=== PATIENT | female | born 2000 | race Caucasian/White ===

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

== ENCOUNTER 2020-02-27 08:00 | Outpatient (CLI) | payer MEDICAID ==
[2020-02-28 20:44] LABS: TRICHOMONAS VAGINALIS DNA NEGATIVE (NEGATIVE)
== END 2020-02-27 23:59 ==
LOC: LAB.R 08:00
PROVIDERS: ATTEND Advanced Practice Midwife
DX: Z30.49 Encounter for surveillance of other contraceptives (principal)
CPT/HCPCS: 87491; 87591; 87661

== ENCOUNTER 2020-03-26 08:00 | Outpatient (CLI) | payer MEDICAID ==
[2020-03-26 23:38] LABS: TRICHOMONAS VAGINALIS DNA NEGATIVE (NEGATIVE)
== END 2020-03-26 23:59 | disposition home or self-care (01) ==
LOC: LAB.R 08:00
PROVIDERS: ATTEND Advanced Practice Midwife
DX: A56.09 Other chlamydial infection of lower genitourinary tract (principal)
CPT/HCPCS: 87491; 87591; 87661

== ENCOUNTER 2020-05-14 13:15 | Outpatient (CLI) | payer MEDICAID ==
[2020-05-14 23:13] LABS: TRICHOMONAS VAGINALIS DNA NEGATIVE (NEGATIVE)
== END 2020-05-14 23:59 | disposition home or self-care (01) ==
LOC: LAB.R 13:15
PROVIDERS: ATTEND Obstetrics & Gynecology
DX: Z86.19 Personal history of other infectious and parasitic diseases (principal)
CPT/HCPCS: 87491; 87591; 87661

== ENCOUNTER 2020-07-02 08:00 | Outpatient (CLI) | payer MEDICAID ==
[2020-07-02 16:49] LABS: BILIRUBIN,URINE NEGATIVE (NEGATIVE); CLARITY,URINE CLOUDY (CLEAR); GLUCOSE, URINE (UA) NEGATIVE (NEGATIVE); KETONES,URINE (UA) TRACE mg/dL (NEGATIVE); LEUKOCYTE ESTERASE, URINE SMALL (NEGATIVE); NITRITE,URINE NEGATIVE (NEGATIVE); OCCULT BLOOD,URINE NEGATIVE (NEGATIVE); PROTEIN,URINE NEGATIVE (NEGATIVE); UROBILINOGEN,URINE 0.2 (NORMAL) E.U./dL (NORMAL)
[2020-07-02 17:01] LABS: AMORPHOUS SEDIMENT,UR Marked /LPF; BACTERIA,URINE Rare /HPF (None Seen); RBC,URINE 0-5 /HPF (0-5); SQUAMOUS EPITHELIAL CELL,UR MOD Squamous (<= Few)
== END 2020-07-02 23:59 | disposition home or self-care (01) ==
LOC: LAB.R 08:00
PROVIDERS: ATTEND Nurse Practitioner Obstetrics & Gynecology
DX: Z32.01 Encounter for pregnancy test, result positive (principal)
CPT/HCPCS: 81001; 87086

== ENCOUNTER 2020-07-16 06:42 | Outpatient (CLI) | payer MEDICAID ==
--- NOTE | 2020-07-16 09:57 | Ultrasound Report ---
PROCEDURE: TEMPORARY INDICATIONS: PROCEDURE: TEMPORARY INDICATIONS: Positive test. OUTSIDE/PRIOR DATING DATA: Last menstrual period (LMP): 05/22/2020. LMP-based estimated date of delivery (MIK): 02/26/2021. First dating scan (date and location): 07/16/2020. Estimated date of delivery (MIK) from first dating scan: 02/28/2021. TECHNIQUE: Real-time scanning was performed of the fetus and maternal pelvic organs, with image documentation. Endovaginal scanning was also performed to better visualize the fetus and maternal ovaries. COMPARISON: None FINDINGS: Report Embryo: [place]-rump length measures 1.3 cm corresponding to 7 weeks 4 days. Embryonic heart rate ashlie ured at 160 bpm. Small perigestational segment site measuring up to 8 mm. Measurement variability in dating: +/- 4 weeks by LMP, +/- 7 days by mean sac diameter (use before 6 weeks gestation if crown-rump length not able to be measured), +/- 5 days by crown-rump length (6-12 weeks gestation). Maternal organs: Ovaries within normal limits, with right corpus luteal cyst and there is a small ri ght paraovarian cyst measuring up to 2.3 cm.. IMPRESSION: 7 week 4 day single living IUP corresponding to ultrasound MIK of 02/28/2021. Small perigestational sac bleed site. Reviewed by: CACHORRO Donahue on 07/16/2020 9:55 AM PST Approved by: Eulalio Keating MD on 07/16/2020 9:55 AM PST Station ID: [id number]
== END 2020-07-16 06:43 | disposition home or self-care (01) ==
LOC: DI 06:42
PROVIDERS: ATTEND Nurse Practitioner Obstetrics & Gynecology
DX: Z32.01 Encounter for pregnancy test, result positive (principal)

== ENCOUNTER 2020-07-27 10:24 | Emergency (ER) | payer MEDICAID ==
[2020-07-27] MEDS ORDERED: ONDANSETRON 4 MG/2 ML VIAL IVP STA ×2 (10:51→12:38)
[2020-07-27] MEDS ORDERED: SODIUM CHLORIDE 0.9% 1,000 ML IV STA (10:51)
--- NOTE | 2020-07-27 10:53 | ED Physician Documentation ---
PD HPI NVD - Stated complaint Stated Complaint: N/V,9WEEKS - Chief complaint Chief Complaint: General - History obtained from History obtained from: Patient - History of Present Illness Timing - onset: Enter time (299), Today Timing - duration: Hours Timing - details: Abrupt onset, Still present Associated symptoms: No: Fever, Abdominal pain, Chest pain, Dysuria, Vaginal bleeding Contributing factors: Other (9 wks ). No: Sick contact Improved by: Laying still, Vomiting Worsened by: Position Similar symptoms before: Diagnosis (morning sickness) Recently seen: Clinic - Additonal information Additional information: 20-year-old female who is 9 weeks on her first has developed nausea and vomiting at about 3:00 in the morning and she is not been able to control this. She has had some nausea associated with the but usually this is been manageable and she has not had vomiting she has had vomiting since 3 AM. She denies any urinary symptoms. She has had an ultrasound with this and will be seen with [facility] [place]. Review of Systems Constitutional: denies: Fever Ears: denies: Ear pain Nose: denies: Rhinorrhea / runny nose, Congestion Throat: denies: Sore throat Cardiac: denies: Chest pain / pressure, Palpitations Respiratory: denies: Dyspnea, Cough GI: reports: Nausea, Vomiting. denies: Abdominal Pain, Constipation, Diarrhea : denies: Dysuria, Frequency PD PAST MEDICAL HISTORY - Past Medical History Cardiovascular: None Respiratory: None Endocrine/Autoimmune: None Psych: Anxiety Musculoskeletal: None - Past Surgical History Past Surgical History: No - Present Medications Home Medications: Ambulatory Orders Medication Instructions Recorded Confirmed Guaifenesin/Pseudoephedrne HCl 1 each PO BID PRN #20 tab.er.12h 06/21/19 [Mucinex D ER 600-60 mg Tablet] Ondansetron Odt [Zofran] 4 mg TL Q6H PRN #10 tablet 06/21/19 Nitrofurantoin Monohyd/M-Cryst 100 mg PO BID #6 cap 07/27/20 [Macrobid 100 mg Capsule] Ondansetron Odt [Zofran] 4 mg TL Q6H PRN #10 tablet 07/27/20 - Allergies Allergies/Adverse Reactions: Allergies Allergy/AdvReac Type Severity Reaction Status Date / Time No Known Drug Allergies Allergy Verified 07/27/20 10:31 - Social History Does the pt smoke?: No Smoking Status: Never smoker Does the pt drink ETOH?: No Does the pt have substance abuse?: No - Immunizations Immunizations are current?: Yes - POLST Patient has POLST: No PD ED PE NORMAL - Vitals Vital signs reviewed: Yes (hypertensive really mild) - General General: Alert and oriented X 3, Well developed/nourished, Other (Appears nauseated) - HEENT HEENT: Atraumatic, PERRL, EOMI - Neck Neck: Supple, no meningeal sign, No bony TTP - Cardiac Cardiac: RRR, No murmur - Respiratory Respiratory: No respiratory distress, Clear bilaterally - Abdomen Abdomen: Normal bowel sounds, Soft, Non tender, Non distended, No organomegaly - Back Back: No CVA TTP, No spinal TTP - Derm Derm: Normal color, Warm and dry, No rash - Extremities Extremities: No deformity, No edema - Neuro Neuro: Alert and oriented X 3, meter tester primary 2-12 intact, No motor deficit, No sensory deficit, Normal speech Eye Opening: Spontaneous Motor: Obeys Commands Verbal: Oriented GCS Score: 15 - Psych Psych: Normal mood, Normal affect Results - Vitals Vitals: Vital Signs - 24 hr 07/27/20 07/27/20 07/27/20 10:24 12:33 12:34 Temperature 36.5 C Heart Rate 84 79 Respiratory 18 18 Rate Blood Pressure 132/74 H 148/94 H O2 Saturation 99 100 07/27/20 13:23 Temperature Heart Rate 73 Respiratory 16 Rate Blood Pressure 143/81 H O2 Saturation 99 Oxygen O2 Source Room air - Labs Labs: Laboratory Tests 07/27/20 07/27/20 07/27/20 10:58 10:58 10:58 WBC 12.9 H RBC 5.22 Hgb 14.7 Hct 45.9 MCV 87.9 MCH 28.2 MCHC 32.0 RDW 13.0 Plt Count 252 MPV 11.1 H Neut # (Auto) 11.7 H Lymph # (Auto) 0.9 L [place] # (Auto) 0.1 Eos # (Auto) 0.0 Baso # (Auto) 0.0 Absolute Nucleated RBC 0.00 Nucleated RBC % 0.0 Sodium 140 Potassium 3.8 Chloride 100 L Carbon Dioxide 20 L Anion Gap 20.0 H BUN 8 Creatinine 0.7 Estimated GFR (MDRD) 107 Glucose 169 H Calcium 9.8 Total Bilirubin 0.6 AST 28 ALT 26 Alkaline Phosphatase 68 Total Protein 8.1 Albumin 4.4 Globulin 3.7 Albumin/Globulin Ratio 1.2 Lipase 23 Urine Color YELLOW Urine Clarity HAZY Urine pH 7.0 Ur Specific [place] 1.025 Urine Protein 30 H Urine Glucose (UA) NEGATIVE Urine Ketones >=80 H Urine Occult Blood NEGATIVE Urine Nitrite NEGATIVE Urine Bilirubin NEGATIVE Urine Urobilinogen 0.2 (NORMAL) Ur Leukocyte Esterase SMALL H Urine RBC 0-5 Urine WBC 11-25 H Ur Squamous Epith Cells FEW Squamous Urine Bacteria Few Ur Microscopic Review INDICATED Urine Culture Comments INDICATED Procedures - Bedside sono Bedside sono by EMP: With use bedside ultrasound the fetus is imaged has a heart rate of 156 bpm. - IVC sono (time) 1034 Bedside IVC sono: IVC measures (cm) (1.12), Dehydration (est 1-2 liter deficit) PD MEDICAL DECISION MAKING - ED course Complexity details: reviewed old records, reviewed results, re-evaluated patient, considered differential, d/w patient, d/w family ED course: 20-year-old female who is 9 weeks has developed acute nausea and vomiting and she arrives to the emergency department dehydrated. She is administered intravenous saline and Zofran with some improvement and she is found to have urinary tract infection although she has a paucity of symptoms. She is administered a gram of Rocephin intravenously we will place her on 3 days of Macrobid. I have encouraged the patient to attempt to use doxylamine and pyridoxine and we have prescribed zofran for nausea control. Departure - Departure Disposition: 01 Home, Self Care Clinical Impression: Hyperemesis gravidarum UTI (urinary tract infection) Qualifiers: Urinary tract infection type: acute cystitis Hematuria presence: without hematuria Qualified Code(s): N30.00 - Acute cystitis without hematuria Condition: Stable Instructions: ED Preg Morning Sickness, ED UTI Cystitis Female Follow-Up: BHUMI GARVIN, MSN, EHR TRAINER [Primary Care Provider] - Prescriptions: Nitrofurantoin Monohyd/M-Cryst [Macrobid 100 mg Capsule] 100 mg PO BID #6 cap Ondansetron Odt [Zofran] 4 mg TL Q6H PRN #10 tablet PRN Reason: Nausea / Vomiting Discharge Date/Time: 07/27/20 13:31
[2020-07-27 11:22] LABS: BILIRUBIN,URINE NEGATIVE (NEGATIVE); GLUCOSE, URINE (UA) NEGATIVE (NEGATIVE); KETONES,URINE (UA) >=80 mg/dL (NEGATIVE); LEUKOCYTE ESTERASE, URINE SMALL (NEGATIVE); NITRITE,URINE NEGATIVE (NEGATIVE); OCCULT BLOOD,URINE NEGATIVE (NEGATIVE); PROTEIN,URINE 30 mg/dL (NEGATIVE); UROBILINOGEN,URINE 0.2 (NORMAL) E.U./dL (NORMAL)
[2020-07-27 11:25] LABS: CLARITY,URINE HAZY (CLEAR)
[2020-07-27 11:26] LABS: BASOPHILS % (AUTO) 0.2 %; EOSINOPHILS % (AUTO) 0.1 %; HCT - HEMATOCRIT 45.9 % (37.0-47.0); HGB - HEMOGLOBIN 14.7 g/dL (12.0-16.0); LYMPHOCYTES # (AUTO) 0.9 10^3/uL (1.5-3.5); LYMPHOCYTES % (AUTO) 6.8 %; MEAN CORPUSCULAR HEMOGLOBIN 28.2 pg (27.0-31.0); MEAN CORPUSCULAR VOLUME 87.9 fL (81.0-99.0); MEAN PLATELET VOLUME 11.1 fL (7.9-10.8); MONOCYTES # (AUTO) 0.1 10^3/uL (0.0-1.0); MONOCYTES % (AUTO) 1.1 %; NEUTROPHILS # (AUTO) 11.7 10^3/uL (1.5-6.6); PLT - PLATELET COUNT 252 10^3/uL (130-450); RED BLOOD COUNT 5.22 10^6/uL (4.20-5.40); WHITE BLOOD COUNT 12.9 x10^3/uL (4.8-10.8)
[2020-07-27 11:45] LABS: BACTERIA,URINE Few /HPF (None Seen); RBC,URINE 0-5 /HPF (0-5); SQUAMOUS EPITHELIAL CELL,UR FEW Squamous (<= Few)
[2020-07-27 11:46] LABS: ALBUMIN 4.4 g/dL (3.2-5.5); ALBUMIN/GLOBULIN RATIO 1.2 (1.0-2.2); BILIRUBIN,TOTAL 0.6 mg/dL (0.2-1.0); CALCIUM 9.8 mg/dL (8.5-10.3); CREATININE 0.7 mg/dL (0.4-1.0); TOTAL PROTEIN 8.1 g/dL (6.7-8.2)
[2020-07-27 11:47] LABS: POTASSIUM 3.8 mmol/L (3.5-5.0)
[2020-07-27] MEDS ORDERED: cefTRIAXone 1 GM in SODIUM CHLORIDE 0.9% MINIBAG 100 ML IV STA (12:09)
[2020-07-27 13:24] VITALS: BP 143/81
== END 2020-07-27 13:31 | disposition home or self-care (01) ==
LOC: ED 10:24
DX: E86.0 Dehydration (principal); O21.1 Hyperemesis gravidarum with metabolic disturbance; O23.31 Infections of other parts of urinary tract in pregnancy, first trimester; Z3A.09 9 weeks gestation of pregnancy
CPT/HCPCS: 36415; 80053; 81001; 81003; 83690; 85025; 87086; 96361; 96374; 96375; 96376; 99284

== ENCOUNTER 2020-07-29 09:26 | Emergency (ER) | payer MEDICAID ==
[2020-07-29] MEDS ORDERED: SODIUM CHLORIDE 0.9% 1,000 ML IV STA ×2 (10:12→11:20)
[2020-07-29] MEDS ORDERED: METOCLOPRAMIDE 10 MG/2 ML VIAL IVP STA (10:13)
[2020-07-29 10:32] LABS: BASOPHILS % (AUTO) 0.3 %; EOSINOPHILS % (AUTO) 0.1 %; HCT - HEMATOCRIT 40.1 % (37.0-47.0); HGB - HEMOGLOBIN 13.3 g/dL (12.0-16.0); LYMPHOCYTES # (AUTO) 1.7 10^3/uL (1.5-3.5); MEAN CORPUSCULAR HEMOGLOBIN 28.6 pg (27.0-31.0); MEAN CORPUSCULAR HGB CONC 33.2 g/dL (32.0-36.0); MEAN CORPUSCULAR VOLUME 86.2 fL (81.0-99.0); MONOCYTES # (AUTO) 0.7 10^3/uL (0.0-1.0); MONOCYTES % (AUTO) 5.2 %; NEUTROPHILS # (AUTO) 11.6 10^3/uL (1.5-6.6); NEUTROPHILS % (AUTO) 81.9 %; PLT - PLATELET COUNT 263 10^3/uL (130-450); RED BLOOD COUNT 4.65 10^6/uL (4.20-5.40); RED CELL DISTRIBUTION WIDTH 13.1 % (12.0-15.0); WHITE BLOOD COUNT 14.1 x10^3/uL (4.8-10.8)
[2020-07-29 10:40] LABS: HCG UR QUAL POSITIVE
[2020-07-29 10:43] LABS: BILIRUBIN,URINE NEGATIVE (NEGATIVE); GLUCOSE, URINE (UA) NEGATIVE (NEGATIVE); KETONES,URINE (UA) TRACE mg/dL (NEGATIVE); LEUKOCYTE ESTERASE, URINE NEGATIVE (NEGATIVE); NITRITE,URINE NEGATIVE (NEGATIVE); OCCULT BLOOD,URINE NEGATIVE (NEGATIVE); PH,URINE 6.5 PH (5.0-7.5); PROTEIN,URINE TRACE mg/dL (NEGATIVE); UROBILINOGEN,URINE 0.2 (NORMAL) E.U./dL (NORMAL)
[2020-07-29 10:44] LABS: CLARITY,URINE CLEAR (CLEAR)
[2020-07-29 10:46] LABS: ALBUMIN/GLOBULIN RATIO 1.3 (1.0-2.2); BILIRUBIN,TOTAL 0.4 mg/dL (0.2-1.0); CALCIUM 9.4 mg/dL (8.5-10.3); CREATININE 0.5 mg/dL (0.4-1.0); POTASSIUM 3.3 mmol/L (3.5-5.0); TOTAL PROTEIN 7.2 g/dL (6.7-8.2)
--- NOTE | 2020-07-29 12:50 | ED Physician Documentation ---
History of Present Illness - Stated complaint Stated Complaint: VOMITING - Chief complaint Chief Complaint: Abd Pain - History obtained from History obtained from: Patient - Additonal information Additional information: 20yF, currently at 10 weeks ega, p/w multiple episodes of nbnb n/v over the past several days, not resolving with ODT zofran. patient states she has been eating very little and has no appetite. she is on day 2 of 3 of macrobid for uti. endorses some loose stools that are nonbloody. denies fevers, abd pain, contractions, vaginal bleeding or discharge. Review of Systems Constitutional: denies: Fever GI: reports: Nausea, Vomiting. denies: Abdominal Pain Neurologic: reports: Generalized weakness PD PAST MEDICAL HISTORY - Past Medical History Cardiovascular: None Respiratory: None Endocrine/Autoimmune: None Psych: Anxiety Musculoskeletal: None - Past Surgical History Past Surgical History: No - Present Medications Home Medications: Ambulatory Orders Medication Instructions Recorded Confirmed Nitrofurantoin Monohyd/M-Cryst 100 mg PO BID #6 cap 07/27/20 07/29/20 [Macrobid 100 mg Capsule] Ondansetron Odt [Zofran] 4 mg TL Q6H PRN #10 tablet 07/27/20 07/29/20 Ondansetron HCl [Zofran] 4 mg PO Q6H PRN #9 tab 07/29/20 Pnv No.95/Ferrous Fum/Folic AC 1 each PO DAILY 07/29/20 07/29/20 [ Tablet] - Allergies Allergies/Adverse Reactions: Allergies Allergy/AdvReac Type Severity Reaction Status Date / Time No Known Drug Allergies Allergy Verified 07/29/20 09:37 - Social History Does the pt smoke?: No Smoking Status: Never smoker Does the pt drink ETOH?: No Does the pt have substance abuse?: No - Immunizations Immunizations are current?: Yes - POLST Patient has POLST: No PD ED PE NORMAL - Vitals Vital signs reviewed: Yes - General General: Alert and oriented X 3, No acute distress - HEENT HEENT: Atraumatic, PERRL, EOMI, Moist mucous membranes - Cardiac Cardiac: RRR - Respiratory Respiratory: No respiratory distress, Clear bilaterally - Abdomen Abdomen: Non tender, Non distended - Back Back: No CVA TTP - Derm Derm: Normal color, Warm and dry - Extremities Extremities: No deformity - Neuro Neuro: Alert and oriented X 3 - Psych Psych: Normal mood, Normal affect Results - Vitals Vitals: Vital Signs - 24 hr 07/29/20 07/29/20 07/29/20 09:39 10:26 10:29 Temperature 37.1 C Heart Rate 79 62 79 Respiratory 18 16 18 Rate Blood Pressure 138/83 H 86/66 L O2 Saturation 99 100 100 07/29/20 07/29/20 07/29/20 10:31 11:12 13:08 Temperature 37 C Heart Rate 70 61 60 Respiratory 17 16 Rate Blood Pressure 109/80 114/68 117/64 O2 Saturation 100 99 100 Oxygen O2 Source Room air - Labs Labs: Laboratory Tests 07/29/20 07/29/20 07/29/20 10:17 10:17 10:17 WBC 14.1 H RBC 4.65 Hgb 13.3 Hct 40.1 MCV 86.2 MCH 28.6 MCHC 33.2 RDW 13.1 Plt Count 263 MPV 11.0 H Neut # (Auto) 11.6 H Lymph # (Auto) 1.7 [place] # (Auto) 0.7 Eos # (Auto) 0.0 Baso # (Auto) 0.0 Absolute Nucleated RBC 0.00 Nucleated RBC % 0.0 Sodium 137 Potassium 3.3 L Chloride 103 Carbon Dioxide 24 Anion Gap 10.0 BUN 8 Creatinine 0.5 Estimated GFR (MDRD) 157 Glucose 106 H Calcium 9.4 Total Bilirubin 0.4 AST 27 ALT 27 Alkaline Phosphatase 61 Total Protein 7.2 Albumin 4.0 Globulin 3.2 Albumin/Globulin Ratio 1.3 Lipase 23 Urine Color DARK YELLOW Urine Clarity CLEAR Urine pH 6.5 Ur Specific [place] 1.025 Urine Protein TRACE Urine Glucose (UA) NEGATIVE Urine Ketones TRACE Urine Occult Blood NEGATIVE Urine Nitrite NEGATIVE Urine Bilirubin NEGATIVE Urine Urobilinogen 0.2 (NORMAL) Ur Leukocyte Esterase NEGATIVE Ur Microscopic Review NOT INDICATED Urine Culture Comments NOT INDICATED Urine HCG, Qual POSITIVE PD MEDICAL DECISION MAKING - ED course ED course: Patient feeling better status post Reglan and able to tolerate p.o. fluids and crackers. Extensive education given about symptomatic management in the first trimester. Strict return precautions given. Patient will follow up with her OB and can access her stool results on patient portal. Departure - Departure Disposition: 01 Home, Self Care Clinical Impression: Diarrhea, Nausea and vomiting, First trimester Condition: Good Instructions: ED Preg Morning Sickness Follow-Up: Melanie Aguillon MD [Provider Admit Priv/Credential] - Prescriptions: Ondansetron HCl [Zofran] 4 mg PO Q6H PRN #9 tab PRN Reason: Nausea / Vomiting Comments: You were seen in the emergency department for nausea, vomiting, and loose stools. Your lab tests have no concerning findings at this time. Your UTI seems to have resolved. Stool cultures were sent which you can follow-up with your obstetric provider at the women's health clinic. You can also review your results on the patient health portal on the [facility] website. Return to the emergency department for any new or worsening symptoms or other concerns. Discharge Date/Time: 07/29/20 13:08
[2020-07-29 13:09] VITALS: BP 117/64
== END 2020-07-29 13:08 | disposition home or self-care (01) ==
LOC: ED 09:26
DX: O21.9 Vomiting of pregnancy, unspecified (principal); O26.891 Other specified pregnancy related conditions, first trimester; R19.7 Diarrhea, unspecified; Z3A.00 Weeks of gestation of pregnancy not specified
CPT/HCPCS: 36415; 80053; 81003; 81025; 81599; 83690; 85025; 87177; 87209; 96374; 99283; 99284; J2765; 81001; 87045; 87046; 87086

== ENCOUNTER 2020-07-30 08:00 | Outpatient (CLI) | payer MEDICAID ==
[2020-07-30 21:11] LABS: CHLAMYDIA TRACHOMATIS DNA NEGATIVE (NEGATIVE); NEISSERIA GONORRHOEAE DNA NEGATIVE (NEGATIVE); TRICHOMONAS VAGINALIS DNA NEGATIVE (NEGATIVE)
== END 2020-07-30 23:59 | disposition home or self-care (01) ==
LOC: LAB.R 08:00
PROVIDERS: ATTEND Advanced Practice Midwife
DX: Z34.90 Encounter for supervision of normal pregnancy, unspecified, unspecified trimester (principal); Z36.89 Encounter for other specified antenatal screening
CPT/HCPCS: 87491; 87591; 87661

== ENCOUNTER 2020-08-26 08:35 | Emergency (ER) | payer MEDICAID ==
--- OUTSIDE RECORDS SUMMARY | 2020-08-26 08:40 | EXTERNAL MEDICAL SUMMARY RPT | Continuity of Care Document ---
:2000 Demographics Phone Unavailable Preferred Language Unknown Marital Status Unknown Buddhism Affiliation Unknown Race Unknown Ethnic Group Unknown Author Organization [place] Address [address] [phone] Phone Social History date description facility [phone]
--- OUTSIDE RECORDS SUMMARY | 2020-08-26 08:48 | EXTERNAL MEDICAL SUMMARY RPT | Continuity of Care Document ---
:2000 Demographics Phone Unavailable Preferred Language Unknown Marital Status Unknown Sabianist Affiliation Unknown Race Unknown Ethnic Group Unknown Author Organization [place] Address [address] [phone] Phone Social History date description facility [phone]
[2020-08-26 09:09] LABS: BASOPHILS % (AUTO) 0.1 %; HCT - HEMATOCRIT 39.1 % (37.0-47.0); HGB - HEMOGLOBIN 13.4 g/dL (12.0-16.0); LYMPHOCYTES # (AUTO) 0.7 10^3/uL (1.5-3.5); LYMPHOCYTES % (AUTO) 5.3 %; MEAN CORPUSCULAR HEMOGLOBIN 28.8 pg (27.0-31.0); MEAN CORPUSCULAR HGB CONC 34.3 g/dL (32.0-36.0); MEAN CORPUSCULAR VOLUME 84.1 fL (81.0-99.0); MEAN PLATELET VOLUME 10.9 fL (7.9-10.8); MONOCYTES # (AUTO) 0.3 10^3/uL (0.0-1.0); MONOCYTES % (AUTO) 2.2 %; NEUTROPHILS # (AUTO) 11.3 10^3/uL (1.5-6.6); NEUTROPHILS % (AUTO) 92.1 %; PLT - PLATELET COUNT 249 10^3/uL (130-450); RED BLOOD COUNT 4.65 10^6/uL (4.20-5.40); RED CELL DISTRIBUTION WIDTH 13.3 % (12.0-15.0); WHITE BLOOD COUNT 12.3 x10^3/uL (4.8-10.8)
[2020-08-26 09:22] LABS: ALBUMIN 4.2 g/dL (3.2-5.5); ALBUMIN/GLOBULIN RATIO 1.2 (1.0-2.2); BILIRUBIN,TOTAL 0.7 mg/dL (0.2-1.0); CALCIUM 9.6 mg/dL (8.5-10.3); CREATININE 0.4 mg/dL (0.4-1.0); POTASSIUM 3.3 mmol/L (3.5-5.0); TOTAL PROTEIN 7.6 g/dL (6.7-8.2)
[2020-08-26 09:27] LABS: BILIRUBIN,URINE NEGATIVE (NEGATIVE); GLUCOSE, URINE (UA) NEGATIVE (NEGATIVE); KETONES,URINE (UA) >=80 mg/dL (NEGATIVE); LEUKOCYTE ESTERASE, URINE SMALL (NEGATIVE); NITRITE,URINE NEGATIVE (NEGATIVE); OCCULT BLOOD,URINE NEGATIVE (NEGATIVE); PROTEIN,URINE 30 mg/dL (NEGATIVE); UROBILINOGEN,URINE 0.2 (NORMAL) E.U./dL (NORMAL)
[2020-08-26 09:28] LABS: CLARITY,URINE CLEAR (CLEAR)
[2020-08-26 09:33] LABS: BACTERIA,URINE Few /HPF (None Seen); RBC,URINE 0-5 /HPF (0-5); SQUAMOUS EPITHELIAL CELL,UR MOD Squamous (<= Few)
[2020-08-26] MEDS ORDERED: SODIUM CHLORIDE 0.9% 1,000 ML IV STA (09:47)
[2020-08-26] MEDS ORDERED: PROMETHAZINE INJ 25 MG in SODIUM CHLORIDE 0.9% 50 ML IV STA (09:48)
--- NOTE | 2020-08-26 09:48 | ED Physician Documentation ---
History of Present Illness - Stated complaint Stated Complaint: N/V - Chief complaint Chief Complaint: Abd Pain - History obtained from History obtained from: Patient - Additonal information Additional information: Patient comes emergency department chief complaint of ongoing nausea and vomiting since her began. Patient states she is about 14 weeks and that the nausea and vomiting continues. Patient denies fevers, chills, diarrhea, dysuria, vaginal bleeding, or anything else different, new, or concerning. Patient states she could not hold anything down last night and that is why she is here. She is seeing OB and has had an ultrasound demonstrating an intrauterine . Patient states she has some oral dissolving Zofran at home, but this has not been able to "get the nausea under control. No other complaints at this time. Review of Systems Ten Systems: 10 systems reviewed and negative Constitutional: reports: Reviewed and negative Eyes: reports: Reviewed and negative Ears: reports: Reviewed and negative Nose: reports: Reviewed and negative Throat: reports: Reviewed and negative Cardiac: reports: Reviewed and negative Respiratory: reports: Reviewed and negative GI: reports: Nausea, Vomiting, Reviewed and negative : reports: Reviewed and negative Skin: reports: Reviewed and negative Musculoskeletal: reports: Reviewed and negative Neurologic: reports: Reviewed and negative Psychiatric: reports: Reviewed and negative Endocrine: reports: Reviewed and negative Immunocompromised: reports: Reviewed and negative PD PAST MEDICAL HISTORY - Past Medical History Past Medical History: Yes Cardiovascular: None Respiratory: None Neuro: None Endocrine/Autoimmune: None GI: None : Benign prostate hypertrophy HEENT: None Psych: Anxiety Musculoskeletal: None Derm: None - Past Surgical History Past Surgical History: No - Present Medications Home Medications: Ambulatory Orders Medication Instructions Recorded Confirmed Pnv No.95/Ferrous Fum/Folic AC 1 each PO DAILY 07/29/20 08/26/20 [ Tablet] Promethazine Supp [Phenergan Supp] 25 mg OK Q8HR PRN #15 supp 08/26/20 - Allergies Allergies/Adverse Reactions: Allergies Allergy/AdvReac Type Severity Reaction Status Date / Time No Known Drug Allergies Allergy Verified 08/26/20 08:42 - Social History Does the pt smoke?: No Smoking Status: Never smoker Does the pt drink ETOH?: No Does the pt have substance abuse?: No - Immunizations Immunizations are current?: Yes - POLST Patient has POLST: No PD ED PE NORMAL - Vitals Vital signs reviewed: Yes - General General: Alert and oriented X 3, No acute distress - HEENT HEENT: Atraumatic, PERRL, EOMI, Moist mucous membranes - Neck Neck: Supple, no meningeal sign - Cardiac Cardiac: RRR, No murmur - Respiratory Respiratory: No respiratory distress, Clear bilaterally - Abdomen Abdomen: Soft, Non distended, Other (Mild, left upper quadrant) - Back Back: No CVA TTP - Derm Derm: Warm and dry - Extremities Extremities: No deformity, No edema, No calf tenderness / cord - Neuro Neuro: Alert and oriented X 3, sample case porter 2-12 intact, Normal speech, Other ( Grossly normal.) - Psych Psych: Normal mood, Normal affect Results - Vitals Vitals: Oxygen O2 Source Room air - Labs Labs: Laboratory Tests 08/26/20 08/26/20 08/26/20 09:00 09:00 09:15 WBC 12.3 H RBC 4.65 Hgb 13.4 Hct 39.1 MCV 84.1 MCH 28.8 MCHC 34.3 RDW 13.3 Plt Count 249 MPV 10.9 H Neut # (Auto) 11.3 H Lymph # (Auto) 0.7 L [place] # (Auto) 0.3 Eos # (Auto) 0.0 Baso # (Auto) 0.0 Absolute Nucleated RBC 0.00 Nucleated RBC % 0.0 Sodium 138 Potassium 3.3 L Chloride 106 Carbon Dioxide 19 L Anion Gap 13.0 BUN 6 Creatinine 0.4 Estimated GFR (MDRD) 203 Glucose 154 H Calcium 9.6 Total Bilirubin 0.7 AST 18 ALT 15 Alkaline Phosphatase 53 Total Protein 7.6 Albumin 4.2 Globulin 3.4 Albumin/Globulin Ratio 1.2 Lipase 27 Urine Color YELLOW Urine Clarity CLEAR Urine pH 6.0 Ur Specific [place] >=1.030 H Urine Protein 30 H Urine Glucose (UA) NEGATIVE Urine Ketones >=80 H Urine Occult Blood NEGATIVE Urine Nitrite NEGATIVE Urine Bilirubin NEGATIVE Urine Urobilinogen 0.2 (NORMAL) Ur Leukocyte Esterase SMALL H Urine RBC 0-5 Urine WBC 11-25 H Ur Squamous Epith Cells MOD Squamous H Urine Bacteria Few Ur Microscopic Review INDICATED Urine Culture Comments NOT INDICATED PD MEDICAL DECISION MAKING - ED course Complexity details: reviewed results, re-evaluated patient, considered differential, d/w patient ED course: Patient was treated symptomatically with IV fluids and antiemetics. Labs were fairly unremarkable. Urinalysis showed an elevated specific gravity consistent with some degree of dehydration. Pt was feeling better after symptomatic treatment. We have discussed the usual indications for return. Departure - Departure Disposition: 01 Home, Self Care Clinical Impression: First trimester , Hyperemesis gravidarum Condition: Stable Instructions: Diet Clear Liquid Dc, ED Nausea Vomiting Prescriptions: Promethazine Supp [Phenergan Supp] 25 mg OK Q8HR PRN #15 supp PRN Reason: Nausea / Vomiting Discharge Date/Time: 08/26/20 11:11
[2020-08-26 11:10] VITALS: BP 116/60
== END 2020-08-26 11:11 | disposition home or self-care (01) ==
LOC: ED 08:35
DX: O21.1 Hyperemesis gravidarum with metabolic disturbance (principal); Z3A.14 14 weeks gestation of pregnancy
CPT/HCPCS: 36415; 80053; 81001; 83690; 85025; 96365; 99284; J7040; 81003; 87086

== ENCOUNTER 2020-09-02 09:58 | Outpatient (CLI) | payer MEDICAID ==
[2020-09-02 10:47] LABS: BASOPHILS % (AUTO) 0.3 %; EOSINOPHILS % (AUTO) 0.4 %; HCT - HEMATOCRIT 36.2 % (37.0-47.0); HGB - HEMOGLOBIN 11.6 g/dL (12.0-16.0); MEAN CORPUSCULAR HEMOGLOBIN 28.6 pg (27.0-31.0); MEAN CORPUSCULAR VOLUME 89.4 fL (81.0-99.0); MONOCYTES % (AUTO) 5.3 %; NEUTROPHILS % (AUTO) 73.7 %; PLT - PLATELET COUNT 197 10^3/uL (130-450); RED BLOOD COUNT 4.05 10^6/uL (4.20-5.40); WHITE BLOOD COUNT 6.8 x10^3/uL (4.8-10.8)
[2020-09-02 10:53] LABS: LYMPHOCYTES # (AUTO) 1.4 10^3/uL (1.5-3.5); MEAN PLATELET VOLUME 11.5 fL (7.9-10.8); MONOCYTES # (AUTO) 0.4 10^3/uL (0.0-1.0); RED CELL DISTRIBUTION WIDTH 13.3 % (12.0-15.0)
[2020-09-02 22:32] LABS: CHLAMYDIA TRACHOMATIS DNA NEGATIVE (NEGATIVE); NEISSERIA GONORRHOEAE DNA NEGATIVE (NEGATIVE); TRICHOMONAS VAGINALIS DNA NEGATIVE (NEGATIVE)
[2020-09-03 12:27] LABS: HEPATITIS C ANTIBODY NON-REACTIVE (NON-REACTIVE)
[2020-09-03 12:40] LABS: HEPATITIS B SURFACE ANTIGEN NON-REACTIVE (NON-REACTIVE)
[2020-09-03 14:02] LABS: HIV AG/AB 4TH GEN NON-REACTIVE (NON-REACTIVE)
== END 2020-09-02 09:59 | disposition home or self-care (01) ==
LOC: LAB 09:58
PROVIDERS: ATTEND Radiology Diagnostic Radiology
DX: Z34.90 Encounter for supervision of normal pregnancy, unspecified, unspecified trimester (principal); Z36.89 Encounter for other specified antenatal screening
CPT/HCPCS: 36415; 85025; 86592; 86762; 86787; 86803; 86850; 86900; 86901; 87340; 87389; 87491; 87591; 87661

== ENCOUNTER 2020-10-10 07:23 | Outpatient (CLI) | payer MEDICAID ==
--- NOTE | 2020-10-10 15:06 | Ultrasound Report ---
PROCEDURE: OB Detailed Eval INDICATIONS: SUPERVISON OF NORMAL OUTSIDE/PRIOR DATING DATA: Last menstrual period (LMP): 05/22/2020. LMP-based estimated date of delivery (MIK): 02/26/2021. First dating scan (date and location): 07/16/2020. Estimated date of delivery (MIK) from first dating scan: 02/28/2021. The below data below was generated using the ultrasound MIK of 02/28/2021 TECHNIQUE: Real-time scanning was performed of the fetus, with image documentation and biometric measurements. Endovaginal scanning: Performed COMPARISON: None. FINDINGS: General: A single living intrauterine gestation is present. Presentation: Vertex Placenta: Placental position is posterior, without previa. Amniotic fluid index: 14.3 cm, normal 5-24 cm. heart rate: 150 beats per minute. Maternal cervical canal: Closed and 4.0 cm long; normal length is 2.5 cm or more. biometrics: Biparietal diameter: 20 weeks 6 days Head circumference: 20 weeks 0 days Abdominal circumference: 21 weeks 0 days Femur length: 20 weeks 6 days Estimated gestational age from initial scan: 19 weeks 6 days. Composite gestational age from present scan: 20 weeks 3 days Estimated weight and percentile: 382 g; 93rd percentile Measurement variability in biometric dating: +/- 10 days from 12-20 weeks gestation, +/- 2 weeks from 20-30 weeks gestation, +/- 3 weeks at 30 weeks gestation or later. Anatomic survey: Neuro: Ventricles are normal at less than 10 mm. Cisterna magna is normal at 3-11 mm. Cerebellum i s normal in size and morphology. Nuchal skin fold: Normal at less than 6 mm between 14 and 20 weeks gestational age. Face: Nose and lips, facial profile are normal. Spine: No evidence for spina bifida. Heart: Not well visualized and cannot be evaluated Diaphragm: Diaphragm is intact. Stomach: Left-sided stomach is present. Kidneys: No hydronephrosis. Normal is less than 5 mm in 2nd trimester, less than 7 mm in 3rd trimester. Cord: 3 vessel cord has orthotopic insertion. Bladder: Normal in size. Extremities: All 4 extremities are visualized. IMPRESSION: 1. Single living intrauterine with appropriate interval growth. 2. Amniotic fluid index is normal. 3. Estimated weight 382 g corresponds to 93rd percentile for gestational age. 4. Suboptimal visualization of the heart. Otherwise normal anatomic survey. Recommend fol low-up limited anatomic survey at 22-24 weeks gestation. Reviewed by: Cynthia Whiting MD, PhD on 10/10/2020 3:05 PM PDT Approved by: Cynthia Whiting MD, PhD on 10/10/2020 3:05 PM PDT Station ID: [id number]
== END 2020-10-10 07:24 | disposition home or self-care (01) ==
LOC: DI 07:23
PROVIDERS: ATTEND Nurse Practitioner Obstetrics & Gynecology
DX: Z34.00 Encounter for supervision of normal first pregnancy, unspecified trimester (principal); Z36.89 Encounter for other specified antenatal screening

== ENCOUNTER 2020-10-13 14:46 | Emergency (ER) | payer MEDICAID ==
[2020-10-13] MEDS ORDERED: SODIUM CHLORIDE 0.9% 1,000 ML IV STA (14:49)
--- OUTSIDE RECORDS SUMMARY | 2020-10-13 14:51 | EXTERNAL MEDICAL SUMMARY RPT | Continuity of Care Document ---
:2000 Demographics Phone Unavailable Preferred Language Unknown Marital Status Unknown Sabianist Affiliation Unknown Race Unknown Ethnic Group Unknown Author Organization [place] Address [address] [phone] Phone Allergies Encounters Medications Problems Results
[2020-10-13 15:11] LABS: BASOPHILS % (AUTO) 0.1 %; HCT - HEMATOCRIT 35.9 % (37.0-47.0); HGB - HEMOGLOBIN 12.4 g/dL (12.0-16.0); LYMPHOCYTES # (AUTO) 0.6 10^3/uL (1.5-3.5); LYMPHOCYTES % (AUTO) 6.1 %; MEAN CORPUSCULAR HEMOGLOBIN 29.5 pg (27.0-31.0); MEAN CORPUSCULAR HGB CONC 34.5 g/dL (32.0-36.0); MEAN CORPUSCULAR VOLUME 85.3 fL (81.0-99.0); MEAN PLATELET VOLUME 10.7 fL (7.9-10.8); MONOCYTES # (AUTO) 0.1 10^3/uL (0.0-1.0); MONOCYTES % (AUTO) 1.2 %; NEUTROPHILS % (AUTO) 92.3 %; PLT - PLATELET COUNT 223 10^3/uL (130-450); RED BLOOD COUNT 4.21 10^6/uL (4.20-5.40); RED CELL DISTRIBUTION WIDTH 13.8 % (12.0-15.0); WHITE BLOOD COUNT 9.7 x10^3/uL (4.8-10.8)
--- OUTSIDE RECORDS SUMMARY | 2020-10-13 15:16 | EXTERNAL MEDICAL SUMMARY RPT | Continuity of Care Document ---
:2000 Demographics Phone Unavailable Preferred Language Unknown Marital Status Unknown Sikhism Affiliation Unknown Race Unknown Ethnic Group Unknown Author Organization [place] Address [address] [phone] Phone Allergies Encounters Medications Problems Results
--- NOTE | 2020-10-13 15:21 | ED Physician Documentation ---
PD HPI ABD PAIN - Stated complaint Stated Complaint: N/V - Chief complaint Chief Complaint: Abd Pain - History obtained from History obtained from: Patient - Additional information Additional information: Xander at 20 weeks gestation presents with vomiting since 4 AM with stomach cramps. No pelvic pain or bleeding or loss of fluid. She has been diagnosed with hyperemesis. Oral Zofran is ineffective. Review of Systems Ten Systems: 10 systems reviewed and negative Constitutional: reports: Reviewed and negative Ears: reports: Reviewed and negative Nose: reports: Reviewed and negative PD PAST MEDICAL HISTORY - Past Medical History Cardiovascular: None Respiratory: None Neuro: None Endocrine/Autoimmune: None GI: None : Benign prostate hypertrophy HEENT: None Psych: Anxiety Musculoskeletal: None Derm: None - Past Surgical History Past Surgical History: No - Present Medications Home Medications: Ambulatory Orders Medication Instructions Recorded Confirmed Pnv No.95/Ferrous Fum/Folic AC 1 each PO DAILY 07/29/20 08/26/20 [ Tablet] Promethazine Supp [Phenergan Supp] 25 mg SD Q8HR PRN #15 supp 08/26/20 - Allergies Allergies/Adverse Reactions: Allergies Allergy/AdvReac Type Severity Reaction Status Date / Time No Known Drug Allergies Allergy Verified 10/13/20 14:52 - Social History Does the pt smoke?: No Smoking Status: Never smoker Does the pt drink ETOH?: No Does the pt have substance abuse?: No - Immunizations Immunizations are current?: Yes - POLST Patient has POLST: No PD ED PE NORMAL - Vitals Vital signs reviewed: Yes - General General: Alert and oriented X 3, No acute distress - HEENT HEENT: PERRL, EOMI - Neck Neck: Supple, no meningeal sign, No bony TTP - Cardiac Cardiac: RRR, No murmur - Respiratory Respiratory: No respiratory distress, Clear bilaterally - Abdomen Abdomen: Non tender, Other (Bedside ultrasound demonstrates single live intrauterine with a heart rate of 162.) - Neuro Neuro: Alert and oriented X 3, Normal speech Results - Vitals Vitals: Vital Signs - 24 hr 10/13/20 14:52 Temperature 36.5 C Heart Rate 100 Respiratory 16 Rate Blood Pressure 132/76 H O2 Saturation 98 Oxygen O2 Source Room air - Labs Labs: Laboratory Tests 10/13/20 10/13/20 15:08 15:08 WBC 9.7 RBC 4.21 Hgb 12.4 Hct 35.9 L MCV 85.3 MCH 29.5 MCHC 34.5 RDW 13.8 Plt Count 223 MPV 10.7 Neut # (Auto) 9.0 H Lymph # (Auto) 0.6 L [place] # (Auto) 0.1 Eos # (Auto) 0.0 Baso # (Auto) 0.0 Absolute Nucleated RBC 0.00 Nucleated RBC % 0.0 Sodium 141 Potassium 3.7 Chloride 109 Carbon Dioxide 19 L Anion Gap 13.0 BUN 5 L Creatinine 0.4 Estimated GFR (MDRD) 203 Glucose 135 H Calcium 9.4 Total Bilirubin 0.9 AST 17 ALT 14 Alkaline Phosphatase 56 Total Protein 7.3 Albumin 4.0 Globulin 3.3 Albumin/Globulin Ratio 1.2 Lipase 23 PD MEDICAL DECISION MAKING - ED course ED course: 20-year-old G1 at 20 weeks gestation presents with nausea in . She was given Reglan and a liter of IV crystalloid. She is feeling somewhat better but still fairly nauseous. Offered further therapy but she declined and wanted to go home. Departure - Departure Disposition: 01 Home, Self Care Clinical Impression: Vomiting Qualifiers: Vomiting type: unspecified Vomiting Intractability: intractable Nausea presence: with nausea Qualified Code(s): R11.2 - Nausea with vomiting, unspecified Condition: Good Record reviewed to determine appropriate education?: Yes Instructions: ED Nausea Vomiting, ED Preg Morning Sickness Comments: Return if worsening, follow-up with your OB, next available appointment.
[2020-10-13 15:27] LABS: ALBUMIN/GLOBULIN RATIO 1.2 (1.0-2.2); BILIRUBIN,TOTAL 0.9 mg/dL (0.2-1.0); CALCIUM 9.4 mg/dL (8.5-10.3); CREATININE 0.4 mg/dL (0.4-1.0); POTASSIUM 3.7 mmol/L (3.5-5.0); TOTAL PROTEIN 7.3 g/dL (6.7-8.2)
[2020-10-13] MEDS ORDERED: METOCLOPRAMIDE 10 MG/2 ML VIAL IVP STA (15:42)
[2020-10-13 16:55] LABS: BILIRUBIN,URINE NEGATIVE (NEGATIVE); GLUCOSE, URINE (UA) NEGATIVE (NEGATIVE); KETONES,URINE (UA) >=80 mg/dL (NEGATIVE); LEUKOCYTE ESTERASE, URINE TRACE (NEGATIVE); NITRITE,URINE NEGATIVE (NEGATIVE); OCCULT BLOOD,URINE NEGATIVE (NEGATIVE); PROTEIN,URINE 30 mg/dL (NEGATIVE); UROBILINOGEN,URINE 0.2 (NORMAL) E.U./dL (NORMAL)
[2020-10-13 16:56] LABS: CLARITY,URINE SL. CLOUDY (CLEAR)
[2020-10-13 17:02] LABS: AMORPHOUS SEDIMENT,UR Few /LPF; BACTERIA,URINE Few /HPF (None Seen); MUCUS,URINE Moderate Strands; RBC,URINE 0-5 /HPF (0-5); SQUAMOUS EPITHELIAL CELL,UR MOD Squamous (<= Few); WBC,URINE 0-3 /HPF (0-5)
[2020-10-13 17:04] VITALS: BP 147/72
== END 2020-10-13 17:06 | disposition home or self-care (01) ==
LOC: ED 14:46
DX: O21.0 Mild hyperemesis gravidarum (principal); Z3A.20 20 weeks gestation of pregnancy
CPT/HCPCS: 36415; 80053; 81001; 83690; 85025; 96361; 96374; 99283; J2765; 81003; 87086

== ENCOUNTER 2020-11-04 17:30 | Emergency (ER) | payer MEDICAID ==
[2020-11-04] MEDS ORDERED: IBUPROFEN 600 MG TABLET PO STA (19:03)
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
[2020-11-04 19:29] VITALS: BP 120/78
== END 2020-11-04 19:26 | disposition home or self-care (01) ==
LOC: ED 17:30
DX: L55.1 Sunburn of second degree (principal)
CPT/HCPCS: 99282; 99283; A9270

== ENCOUNTER 2020-11-06 16:30 | Outpatient (CLI) | payer MEDICAID ==
--- NOTE | 2020-11-07 11:38 | Ultrasound Report ---
PROCEDURE: OB F/U or Repeat INDICATIONS: SUPERVISION NORMAL OUTSIDE/PRIOR DATING DATA: Last menstrual period (LMP): 05/22/2020. LMP-based estimated date of delivery (MIK): 02/26/2021. First dating scan (date and location): 07/16/2020. Estimated date of delivery (MIK) from first dating scan: 02/28/2021. The below data below was generated using the ultrasound MIK of 02/28/2021. TECHNIQUE: Real-time scanning was performed of the fetus, with image documentation and biometric measurements. Endovaginal scanning: Performed COMPARISON: 07/16/2020 and 10/10/2020. FINDINGS: General: A single living intrauterine gestation is present. Presentation: Vertex Placenta: Placental position is posterior, without previa. Amniotic fluid index: 15.1 cm, 09/13/2019 4 cm normal. heart rate: 167 beats per minute. Maternal cervical canal: Closed. Estimated gestational age from initial scan: 23 weeks 5 days. Other: 4 chambered heart and cardiac ventricular outflow tracts are normal. IMPRESSION: 1. Single living intrauterine . 2. Normal amniotic fluid index. 3. heart well-visualized on current study. Normal four-chamber heart and cardiac ventricular ou tflow tracts identified. Reviewed by: Cynthia Whiting MD, PhD on 11/07/2020 11:36 AM PDT Approved by: Cynthia Whiting MD, PhD on 11/07/2020 11:36 AM PDT Station ID: [id number]
== END 2020-11-06 16:31 | disposition home or self-care (01) ==
LOC: DI 16:30
PROVIDERS: ATTEND Nurse Practitioner Obstetrics & Gynecology
DX: Z34.02 Encounter for supervision of normal first pregnancy, second trimester (principal); Z36.89 Encounter for other specified antenatal screening

== ENCOUNTER 2020-11-15 08:33 | Outpatient (CLI) | payer MEDICAID ==
[2020-11-15 09:31] VITALS: BP 112/48
[2020-11-15 09:54] LABS: BASOPHILS % (AUTO) 0.4 %; EOSINOPHILS % (AUTO) 0.5 %; HCT - HEMATOCRIT 33.1 % (37.0-47.0); HGB - HEMOGLOBIN 11.2 g/dL (12.0-16.0); LYMPHOCYTES # (AUTO) 1.1 10^3/uL (1.5-3.5); LYMPHOCYTES % (AUTO) 14.4 %; MEAN CORPUSCULAR HEMOGLOBIN 29.2 pg (27.0-31.0); MEAN CORPUSCULAR HGB CONC 33.8 g/dL (32.0-36.0); MEAN CORPUSCULAR VOLUME 86.4 fL (81.0-99.0); MEAN PLATELET VOLUME 11.3 fL (7.9-10.8); MONOCYTES # (AUTO) 0.4 10^3/uL (0.0-1.0); MONOCYTES % (AUTO) 5.3 %; NEUTROPHILS % (AUTO) 78.9 %; PLT - PLATELET COUNT 213 10^3/uL (130-450); RED BLOOD COUNT 3.83 10^6/uL (4.20-5.40); WHITE BLOOD COUNT 7.6 x10^3/uL (4.8-10.8)
[2020-11-15] MEDS ORDERED: RHO(D) IMMUNE GLOBULIN 300 MCG SYRINGE IVP ONE (10:10)
--- NOTE | 2020-11-15 10:18 | Ultrasound Report ---
PROCEDURE: OB Limited INDICATIONS: vaginal bleeding in OUTSIDE/PRIOR DATING DATA: Last menstrual period (LMP): 05/22/2020. LMP-based estimated date of delivery (MIK): 02/26/2021. First dating scan (date and location): 07/16/2020. Estimated date of delivery (MIK) from first dating scan: 02/28/2021. The below data below was generated using the ultrasound MIK of 02/28/2021 TECHNIQUE: Real-time scanning was performed of the fetus, with image documentation. Endovaginal scanning: Performed for additional visualization. COMPARISON: None. FINDINGS: A single live intrauterine gestation is present. Presentation: Vertex Placenta: Placental position is posterior, without previa. No significant abnormality of the placent a is seen. Amniotic fluid index: 11.8 cm, within normal limits for gestational age. heart rate: 166 beats per minutes. Maternal cervical canal: 3.7 cm long; normal length is 2.5 cm or more. No funneling of the internal cervical os can be seen. Estimated gestational age from initial scan: 25 weeks 0 days. IMPRESSION: No ryan, acute abnormality can be seen. No abnormality of the placenta is seen. The cervix demonstrates normal length, without internal funneling. Note: Dr. Aguillon was present during the transvaginal portion of this study at 10:00 AM. Reviewed by: Bossman Gasca MD on 11/15/2020 9:17 AM DENNY Approved by: Bossman Gasca MD on 11/15/2020 9:17 AM DENNY Station ID: [id number]
--- NOTE | 2020-11-15 10:26 | Ultrasound Report ---
PROCEDURE: OB Transvaginal INDICATIONS: vaginal bleeding 25 weeks 2 days, MIK 02-26-21 OUTSIDE/PRIOR DATING DATA: Last menstrual period (LMP): 05/22/2020. LMP-based estimated date of delive ry (MIK): 02/26/2021. First dating scan (date and location): 07/16/2020. Estimated date of delivery (E DD) from first dating scan: 02/28/2021. The below data below was generated using the ultrasound MIK o f 02/28/2021 TECHNIQUE: Real-time scanning was performed of the fetus, with image documentation. End ovaginal scanning: Performed for additional visualization. COMPARISON: None. FINDINGS: A single live intrauterine gestation is present. Presentation: Vertex Placenta: Placental p osition is posterior, without previa. No significant abnormality of the placenta is seen. Amniotic fl uid index: 11.8 cm, within normal limits for gestational age. heart rate: 166 beats per minutes . Maternal cervical canal: 3.7 cm long; normal length is 2.5 cm or more. No funneling of the internal cervical os can be seen. Estimated gestational age from initial scan: 25 weeks 0 days. IMPRESSION: No ryan, acute abnormality can be seen. No abnormality of the placenta is seen. The ce rvix demonstrates normal length, without internal funneling. Note: Dr. Aguillon was present marcella the transvaginal portion of this study at 10:00 AM. Reviewed by: Bossman Gasca MD on 11/15/2020 9:25 AM DENNY Approved by: Bossman Gasca MD on 11/15/2020 9:25 AM DENNY Station ID: [id number]
[2020-11-15 12:08] LABS: BACTERIAL VAGINOSIS DNA POSITIVE (NEGATIVE); CANDIDA GLABRATA DNA NEGATIVE (NEGATIVE); CANDIDA GROUP DNA POSITIVE (NEGATIVE); CANDIDA KRUSEI DNA NEGATIVE (NEGATIVE); TRICHOMONAS VAGINALIS DNA NEGATIVE (NEGATIVE)
[2020-11-15 13:03] LABS: CHLAMYDIA TRACHOMATIS DNA NEGATIVE (NEGATIVE); NEISSERIA GONORRHOEAE DNA NEGATIVE (NEGATIVE); TRICHOMONAS VAGINALIS DNA NEGATIVE (NEGATIVE)
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
== END 2020-11-15 10:25 | disposition home or self-care (01) ==
LOC: WFO 08:33 → FBP 08:35 → WFO 10:25
PROVIDERS: ATTEND Obstetrics & Gynecology
DX: O46.92 Antepartum hemorrhage, unspecified, second trimester (principal); Z3A.25 25 weeks gestation of pregnancy; O26.892 Other specified pregnancy related conditions, second trimester; Z67.91 Unspecified blood type, Rh negative; O23.592 Infection of other part of genital tract in pregnancy, second trimester; B96.89 Other specified bacterial agents as the cause of diseases classified elsewhere; B37.3 Candidiasis of vulva and vagina
CPT/HCPCS: 36415; 85025; 86850; 87491; 87591; 87661; 87801; 96374; 99214; 99215

== ENCOUNTER 2020-11-24 12:14 | Outpatient (CLI) | payer MEDICAID ==
[2020-11-24 13:27] LABS: HCT - HEMATOCRIT 33.8 % (37.0-47.0); HGB - HEMOGLOBIN 11.3 g/dL (12.0-16.0); MEAN CORPUSCULAR HEMOGLOBIN 28.8 pg (27.0-31.0); MEAN CORPUSCULAR HGB CONC 33.4 g/dL (32.0-36.0); MEAN CORPUSCULAR VOLUME 86.2 fL (81.0-99.0); MEAN PLATELET VOLUME 10.9 fL (7.9-10.8); RED BLOOD COUNT 3.92 10^6/uL (4.20-5.40); RED CELL DISTRIBUTION WIDTH 13.9 % (12.0-15.0); WHITE BLOOD COUNT 8.2 x10^3/uL (4.8-10.8)
== END 2020-11-24 12:15 | disposition home or self-care (01) ==
LOC: LAB 12:14
PROVIDERS: ATTEND Advanced Practice Midwife
DX: Z34.90 Encounter for supervision of normal pregnancy, unspecified, unspecified trimester (principal); Z36.89 Encounter for other specified antenatal screening
CPT/HCPCS: 36415; 82950; 85027

== ENCOUNTER 2020-12-03 06:53 | Outpatient (CLI) | payer MEDICAID ==
[2020-12-03 07:53] LABS: GTT GLUCOSE,FASTING 104 mg/dL (70-100)
== END 2020-12-03 06:54 | disposition home or self-care (01) ==
LOC: LAB 06:53
PROVIDERS: ATTEND Nurse Practitioner Obstetrics & Gynecology
DX: O99.810 Abnormal glucose complicating pregnancy (principal)
CPT/HCPCS: 36415; 82951; 82952

== ENCOUNTER 2021-01-09 00:42 | Outpatient (CLI) | payer MEDICAID ==
[2021-01-09] MEDS ORDERED: ONDANSETRON 4 MG/2 ML VIAL IVP PRN (01:04)
[2021-01-09 01:43] VITALS: BP 133/88
[2021-01-09] MEDS ORDERED: LACTATED RINGERS 1,000 ML IV SCH (02:00)
--- NOTE | 2021-01-09 10:00 | PROVIDER PROGRESS NOTE ---
- HPI Chief Complaint: GI symptoms Current : Current EDU 02/26/21 Gestation 33 Weeks and 1 Days 1 Para 0 Vital Signs Temperature 36.7 C 01/09/21 01:06 Heart Rate 107 H 01/09/21 01:06 Respiratory Rate 20 01/09/21 01:06 Blood Pressure 135/88 H 01/09/21 01:06 O2 Saturation 99 01/09/21 01:06 Temperature 36.7 C 01/09/21 01:41 Heart Rate 107 H 01/09/21 01:41 Respiratory Rate 20 01/09/21 01:41 Blood Pressure 133/88 H 01/09/21 01:41 O2 Saturation 99 01/09/21 01:41 - Procedures OB Procedure Performed: NST Diagnosis/Indication for NST: Other NST Procedure: NST Procedure Start Date 01/09/21 Start Time 00:59 Stop Time 03:04 Vibroacoustic Stimulation Used No Patient States Movement Yes - Plan Plan: Carley is a 20yo @ 33.1wks gestation who presents to [facility] triage with c/o nausea and vomiting since last night at 1700. She denies vaginal bleeding, leakage of fluid, or contractions. She reports +FM. She has experienced persistent vomiting throughout her but states she has not been able to keep anything down since last night and cannot sleep due to vomiting. NST performed 01/09/2021 NST read 01/09/2021 NST reactive. FHR baseline 155, moderate variability, + accels, no decels Contractions palpate mild intermittently and pt does not appreciate contractions 1 liter fluid bolus initiated. 4mg Zofran IVP Nausea and vomiting resolved entirely and pt states she feels much better. Rx for zofran sent to preferred pharmacy as she is currently out at home. Reviewed PTL precautions and encouraged increased fluid intake and rest. Pt has emergency contact number. Pt verbalized understanding and agrees to above plan. She denies further questions or concerns at this time. FINAL DIAGNOSIS: Nausea and vomiting in , third trimester
== END 2021-01-09 03:30 | disposition home or self-care (01) ==
LOC: WFO 00:42 → FBP 00:46 → WFO 03:30
PROVIDERS: ATTEND Nurse Practitioner Obstetrics & Gynecology
DX: O21.2 Late vomiting of pregnancy (principal); Z3A.33 33 weeks gestation of pregnancy
CPT/HCPCS: 59025; 96374; 99213; J7120

== ENCOUNTER 2021-01-27 14:50 | Outpatient (CLI) | payer MEDICAID ==
[2021-01-27 15:14] LABS: HCT - HEMATOCRIT 35.3 % (37.0-47.0); HGB - HEMOGLOBIN 11.7 g/dL (12.0-16.0); MEAN CORPUSCULAR HEMOGLOBIN 28.1 pg (27.0-31.0); MEAN CORPUSCULAR HGB CONC 33.1 g/dL (32.0-36.0); MEAN CORPUSCULAR VOLUME 84.9 fL (81.0-99.0); MEAN PLATELET VOLUME 11.6 fL (7.9-10.8); RED BLOOD COUNT 4.16 10^6/uL (4.20-5.40); RED CELL DISTRIBUTION WIDTH 14.8 % (12.0-15.0); WHITE BLOOD COUNT 7.5 x10^3/uL (4.8-10.8)
[2021-01-27 15:33] LABS: ALBUMIN 3.1 g/dL (3.2-5.5); ALBUMIN/GLOBULIN RATIO 0.9 (1.0-2.2); ALKALINE PHOSPHATASE 110 IU/L (42-121); ALT ALANINE AMINOTRANSFERASE 11 IU/L (10-60); AST ASPARTATE AMINOTRANSFERASE 17 IU/L (10-42); BILIRUBIN,TOTAL 0.5 mg/dL (0.2-1.0); BUN - BLOOD UREA NITROGEN < 5 mg/dL (6-20); CARBON DIOXIDE - CO2 21 mmol/L (21-32); CHLORIDE 105 mmol/L (101-111); CREATININE 0.5 mg/dL (0.4-1.0); GFR - MDRD 157 (>89); GLUCOSE 101 mg/dL (70-100); POTASSIUM 3.7 mmol/L (3.5-5.0); SODIUM 138 mmol/L (135-145); TOTAL PROTEIN 6.4 g/dL (6.7-8.2)
[2021-01-27 15:34] LABS: CREATININE,URINE 70.4 mg/dL; PROTEIN/CREATININE RATIO,URINE 0.1 (<=0.2)
== END 2021-01-27 14:51 | disposition home or self-care (01) ==
LOC: LAB 14:50
PROVIDERS: ATTEND Nurse Practitioner Obstetrics & Gynecology
DX: R03.0 Elevated blood-pressure reading, without diagnosis of hypertension (principal)
CPT/HCPCS: 36415; 80053; 82570; 84156; 85027

== ENCOUNTER 2021-01-29 16:05 | Outpatient (CLI) | payer MEDICAID ==
--- NOTE | 2021-01-30 11:53 | Ultrasound Report ---
PROCEDURE: OB F/U or Repeat INDICATIONS: UTERINE SIZE DATE DISCREPANCY OUTSIDE/PRIOR DATING DATA: Last menstrual period (LMP): 05/22/2020. LMP-based estimated date of delivery (MIK): 02/26/2021. First dating scan (date and location): 07/16/2020. Estimated date of delivery (MIK) from first dating scan: 02/28/2021. The below data below was generated using the ultrasound MIK of 02/28/2021 TECHNIQUE: Real-time scanning was performed of the fetus, with image documentation and biometric measurements. COMPARISON: OB ultrasound 07/16/2020, 6 10/10/2020, 11/15/2020 FINDINGS: General: A single living intrauterine gestation is present. Presentation: Vertex Placenta: Placental position is posterior, without previa. Amniotic fluid index: 17.9 cm, within normal limits for gestational age. Largest pocket 5.1 cm heart rate: 166 beats per minute. Maternal cervical canal: Not assessed biometrics: Biparietal diameter: 8.9 cm 36 weeks 0 days Head circumference: 33.1 cm 37 weeks 5 days Abdominal circumference: 31.5 cm 33 weeks 3 days Femur length: 7.0 cm 35 weeks 5 days Estimated gestational age from initial scan: 35 weeks 5 days Composite gestational age from present scan: 36 weeks 3 days Estimated weight and percentile: 2767 g, 52nd percentile Measurement variability in biometric dating: +/- 10 days from 12-20 weeks gestation, +/- 2 weeks from 20-30 weeks gestation, +/- 3 weeks at 30 weeks gestation or more. Other: Not applicable. IMPRESSION: 1. Single live intrauterine . 2. Growth is within normal limits. Weight is at the 52nd percentile. Reviewed by: Paulina Mcclain MD on 01/30/2021 11:52 AM PDT Approved by: Paulina Mcclain MD on 01/30/2021 11:52 AM PDT Station ID: [id number]
== END 2021-01-29 16:06 | disposition home or self-care (01) ==
LOC: DI 16:05
PROVIDERS: ATTEND Nurse Practitioner Obstetrics & Gynecology
DX: O26.843 Uterine size-date discrepancy, third trimester (principal); Z3A.36 36 weeks gestation of pregnancy

== ENCOUNTER 2021-02-03 08:00 | Outpatient (CLI) | payer MEDICAID | END 2021-02-03 23:59 | disposition home or self-care (01) | LOC: LAB.WC 08:00 | PROVIDERS: ATTEND Nurse Practitioner Obstetrics & Gynecology | DX: Z36.85 Encounter for antenatal screening for Streptococcus B (principal) | CPT/HCPCS: 87797 ==

== ENCOUNTER 2021-02-03 15:43 | Outpatient (CLI) | payer MEDICAID ==
[2021-02-03 16:01] VITALS: BP 137/79
--- NOTE | 2021-02-04 12:30 | PROCEDURE REPORT ---
- HPI Diagnosis/Indication for NST: Gestational Hypertension Current EDU 02/26/21 Gestation 36 Weeks and 5 Days 1 Para 0 Vital Signs Temperature 37.1 C 02/03/21 15:55 Heart Rate 93 02/03/21 15:55 Respiratory Rate 18 02/03/21 15:55 Blood Pressure 137/79 H 02/03/21 15:55 Temperature 36.9 C 02/03/21 15:55 Heart Rate 93 02/03/21 15:55 Respiratory Rate 18 02/03/21 15:55 Blood Pressure 137/79 H 02/03/21 15:55 O2 Saturation - NST Procedure NST Procedure Start Date 02/03/21 Start Time 15:51 Stop Time 16:14 Vibroacoustic Stimulation Used No Patient States Movement Yes - Results and Plan Plan: Carley presents to [facility] following her routine office visit as directed for NST secondary to gestational hypertension. She denies CARROLL, visual disturbances, RUQ or epigastric pain. NST performed 02/03/2021 NST read 02/04/2021 FHR baseline 140s, moderate variability, + accels, no decels No contractions appreciated via tocometry FINAL DIAGNOSIS: Gestational hypertension
== END 2021-02-03 16:20 | disposition home or self-care (01) ==
LOC: WFO 15:43 → FBP 15:45 → WFO 16:20
PROVIDERS: ATTEND Nurse Practitioner Obstetrics & Gynecology
DX: O13.3 Gestational [pregnancy-induced] hypertension without significant proteinuria, third trimester (principal); Z3A.36 36 weeks gestation of pregnancy
CPT/HCPCS: 59025

== ENCOUNTER 2021-02-05 07:19 | Inpatient (IN) | payer MEDICAID ==
[2021-02-05 08:40] LABS: BASOPHILS % (AUTO) 0.7 %; EOSINOPHILS # (AUTO) 0.1 10^3/uL (0.0-0.7); HCT - HEMATOCRIT 34.3 % (37.0-47.0); HGB - HEMOGLOBIN 11.4 g/dL (12.0-16.0); LYMPHOCYTES # (AUTO) 1.5 10^3/uL (1.5-3.5); LYMPHOCYTES % (AUTO) 25.2 %; MEAN CORPUSCULAR HGB CONC 33.2 g/dL (32.0-36.0); MEAN CORPUSCULAR VOLUME 84.3 fL (81.0-99.0); MEAN PLATELET VOLUME 12.1 fL (7.9-10.8); MONOCYTES # (AUTO) 0.4 10^3/uL (0.0-1.0); MONOCYTES % (AUTO) 6.6 %; NEUTROPHILS # (AUTO) 3.9 10^3/uL (1.5-6.6); NEUTROPHILS % (AUTO) 66.3 %; PLT - PLATELET COUNT 181 10^3/uL (130-450); RED BLOOD COUNT 4.07 10^6/uL (4.20-5.40); RED CELL DISTRIBUTION WIDTH 14.9 % (12.0-15.0); WHITE BLOOD COUNT 5.8 x10^3/uL (4.8-10.8)
--- NOTE | 2021-02-05 11:15 | ANESTHESIA ---
Pre-Anesthesia VS, & Labs - Diagnosis Induction of labor, PIH - Procedure vaginal delivery Vital Signs: Temp Pulse Resp BP Pulse Ox 37.0 C 94 16 124/67 02/05/21 08:22 02/05/21 08:22 02/05/21 08:22 02/05/21 08:22 Height: 5 ft 5 in Weight (kg): 103.419 kg Body Mass Index: 37.9 BMI Classification: Obese - NPO Other (Not NPO, here for IOL) - Is Patient ?: Yes - Lab Results Current Lab Results: Laboratory Tests 02/05/21 08:10: WBC 5.8, RBC 4.07 L, Hgb 11.4 L, Hct 34.3 L, MCV 84.3, MCH 28.0, MCHC 33.2, RDW 14.9, Plt Count 181, MPV 12.1 H, Neut # (Auto) 3.9, Lymph # (Auto) 1.5, [place] # (Auto) 0.4, Eos # (Auto) 0.1, Baso # (Auto) 0.0, Absolute Nucleated RBC 0.00, Nucleated RBC % 0.0 Fish Bones: 02/05/21 08:10 Home Medications and Allergies Pnv No.95/Ferrous Fum/Folic AC [ Tablet] 1 each PO DAILY 07/29/20 Allergies/Adverse Reactions: Allergies Allergy/AdvReac Type Severity Reaction Status Date / Time No Known Drug Allergies Allergy Verified 11/04/20 17:39 Anes History & Medical History - Anesthetic History Family history of Anesthesia Complications: Denies Family history of Malignant Hyperthermia: Denies - Medical History Cardiovascular: reports: Hypertension (PIH) Pulmonary: reports: None Gastrointestinal: reports: GERD Urinary: reports: None Neuro: reports: Peripheral neuropathy (right upper thigh, has numbness and tingl ing.) Musculoskeletal: reports: None Endocrine/Autoimmune: reports: None Blood Disorders: reports: None Skin: reports: None Smoking Status: Never smoker Psychosocial: reports: No issues indicated History of Cancer?: No - Obstetrical History : 1 Parity: 0 Events: reports: induced HTN, Other (hyperemesis) Complications: reports: None Exam General: Alert, Oriented x3, Cooperative Dental: WNL Mouth Openin Fingerbreadth Neck Mobility: Normal Mallampati classification: II Thyromental Distance: 4-6 cm Mental/Cognitive Status: Alert/Oriented X3, Normal for patient Plan Anesthesia Type: Epidural Consent for Procedure(s) Verified and Reviewed: Yes Code Status: Attempt Resuscitation ASA classification: 2-Mild systemic disease Is this case an emergency?: No
[2021-02-05] MEDS ORDERED: fentaNYL 100 MCG/2 ML VIAL IVP PRN (13:56)
[2021-02-05] MEDS ORDERED: hydrALAZINE INJ 20 MG/ML VIAL IVP PRN ×2 (13:56)
[2021-02-05] MEDS ORDERED: NIFEdipine 10 MG CAPSULE PO PRN (13:56)
[2021-02-05] MEDS ORDERED: CARBOPROST TROMETHAMINE 250 MCG/ML AMP IM PRN (13:56)
[2021-02-05] MEDS ORDERED: OXYTOCIN 10 UNIT/ML VIAL IM PRN (13:56)
[2021-02-05] MEDS ORDERED: METHYLERGONOVINE 0.2 MG/ML VIAL IM PRN (13:56)
[2021-02-05] MEDS ORDERED: LIDOCAINE-MPF 1% 30 ML VIAL ID PRN (13:56)
[2021-02-05] MEDS ORDERED: LABETALOL 20 MG/4 ML SYRINGE IVP PRN ×3 (13:56)
[2021-02-05] MEDS ORDERED: TERBUTALINE 1 MG/ML VIAL SUBQ PRN (13:56)
[2021-02-05] MEDS ORDERED: TRANEXAMIC ACID IN NACL 1,000 MG/100 ML BAG IV PRN (13:56)
[2021-02-05] MEDS ORDERED: OXYTOCIN/SODIUM CHLORIDE 500 ML IV PRN ×2 (13:56)
[2021-02-05] MEDS ORDERED: SODIUM CHLORIDE FLUSH 0.9% 10 ML SYRINGE IVP PRN (13:56)
[2021-02-05] MEDS ORDERED: OXYTOCIN/SODIUM CHLORIDE 500 ML IV SCH ×2 (14:00→15:00)
[2021-02-05] MEDS ORDERED: ACETAMINOPHEN 325 MG TABLET PO SCH (14:00)
[2021-02-05] MEDS ORDERED: ACETAMINOPHEN 500 MG TABLET PO PRN (14:19)
[2021-02-05] MEDS: miSOPROStoL 100 MCG TABLET BC SCH ×2 (14:30→18:50)
[2021-02-05] MEDS: ONDANSETRON 4 MG/2 ML VIAL IVP PRN (15:49)
--- NOTE | 2021-02-05 17:40 | HISTORY & PHYSICAL EXAMINATION ---
Admit History - Visit Reason Visit Reason: Other (IOL for GHTN) - Smoking Status: Never smoker - Mother's Labs Mother's Blood Type: positive: A Mother's RH: positive: Negative GBS: positive: Group B Step Negative - Other Maternal History Other Maternal History: Patient is a 20 yo at 37+0 wga here for IOL for GHTN. Carley has been followed by the midwifery service. She has had elevations in her blood pressure in the last few weeks, meeting criteria for GHTN. Negative urine protein on 02/03/21. No symptoms at present. Denies CARROLL/vision change/RUQ pain. Blood pressures wnl at presentation. Has had rare BH contraction. No LOF or VB. This is her first . Rh negative and has received Rhogam. Rubella equivocal and VZv non-immune. Failed one hour, passed 3H GTT. US on 01/29/21 showed EFW 52%ile. PNC: Initial ultrasound @ 7.4wks c/w LMP dating. MIK by LMP 02/26/2021. A NEG/ Rhogam Rhogam given on 11/16/2020 at 25.3wks. Repeated at 27.5wks (12/02/20) VZV non-immune/Rubella equivocal Gentic testing: declined FAS: FAS WNL with the exception of suboptimal visualization of heart. Posterior placenta, no previa. 3VC. Size c/w dating (93%tile). 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 FOB Comments: Emili (mom) is emergency contact [phone] FH: Mother: MO<65 Brother: astham MGF: DM Father: ETOH abuse, at 29 MGF: HTN ROS: As per HPI, otherwise remaining systems are negative PE: VS: 98.6 94 124/67 16 GEN: NAD HEAD: NCAT EYES: No scleral icterus or conjunctival injection CV: RRR RESP: CTAB, normal effort ABD: gravid, S&NT/ND PSYCH: appropriate affect NEURO: alert and oriented, normal gait and coordination EXT: WWP Vertex by BSUS SVE: deferred, no contractions on monitor or by hx EFM: 135 mod lm 15x15 accels no decels TOCO: quiet A/P: Patient is a 20 yo at 37+0 wga here for IOL for GHTN. IOL: with no signs of labor -reviewed cervical ripening and induction process. Obtained written, informed cosents -Misoprostol 50 mcg BC Q4h for 6 doses -Consider martinez balloon as indicated -AROM if and when clinically indicated -Pitocin per protocol when cervix is favorable FWB: Vertex, GBS neg, Cat I tracing, well grwon -CEFM PAIN: -Fentanyl 50 mcg Q1H prn pain, not to be given after 7 cm and not to be given more than 200 mcg cumulative dosing -Nitrous oxide as desired. DO NOT MIX GIVE WITH FENTANYL -Epidural as desired PP: Will need Rubella immunization and Rhogam studies/administration Anticipate Admit to observation until pitocin is started, epidural is placed, or membrane rupture. Meds/Allgy - Home Medications Home Medications: Ambulatory Orders Medication Instructions Recorded Confirmed Pnv No.95/Ferrous Fum/Folic AC 1 each PO DAILY 07/29/20 08/26/20 [ Tablet] Promethazine Supp [Phenergan Supp] 25 mg ME Q8HR PRN #15 supp 08/26/20 Bacitracin Zinc Oint 1 applic TOP BID #1 gm 11/04/20 Ibuprofen [Motrin] 600 mg PO Q6H PRN #30 tab 11/04/20 - Allergies Allergies/Adverse Reactions: Allergies Allergy/AdvReac Type Severity Reaction Status Date / Time No Known Drug Allergies Allergy Verified 11/04/20 17:39 Physical - Abdominal Exam Vital Signs: Temp Pulse Resp BP Pulse Ox 98.6 F 94 16 124/67 02/05/21 08:22 02/05/21 08:22 02/05/21 08:22 02/05/21 08:22
--- NOTE | 2021-02-05 20:23 | PROVIDER PROGRESS NOTE ---
Subjective - Prog Note Date Prog Note Date: 02/05/21 Prog Note Time: 20:21 - Subjective Subjective: Patient has had 2 doses of misoprostol and is now feeling her contractions. Due for third dose at 22:30. Membranes intact. EFM: 135 mod lm 15 x15 accels no decels TOCO: Q2 min Desires nitrous oxide Consider holding/postponing next dose miso if contractions frequency remains unchanged Cat I tracing Objective - Lab Results Fish Bones: 02/05/21 08:10 Other Labs: Lab Results x24hrs 02/05/21 02/05/21 Range/Units 08:10 08:10 WBC 5.8 (4.8-10.8) x10^3/uL RBC 4.07 L (4.20-5.40) 10^6/uL Hgb 11.4 L (12.0-16.0) g/dL Hct 34.3 L (37.0-47.0) % MCV 84.3 (81.0-99.0) fL MCH 28.0 (27.0-31.0) pg MCHC 33.2 (32.0-36.0) g/dL RDW 14.9 (12.0-15.0) % Plt Count 181 (130-450) 10^3/uL MPV 12.1 H (7.9-10.8) fL Neut # (Auto) 3.9 (1.5-6.6) 10^3/uL Lymph # (Auto) 1.5 (1.5-3.5) 10^3/uL [place] # (Auto) 0.4 (0.0-1.0) 10^3/uL Eos # (Auto) 0.1 (0.0-0.7) 10^3/uL Baso # (Auto) 0.0 (0.0-0.1) 10^3/uL Absolute Nucleated RBC 0.00 x10^3/uL Nucleated RBC % 0.0 /100WBC Blood Type A NEGATIVE Antibody Screen NEGATIVE
[2021-02-06] MEDS: LACTATED RINGERS 1,000 ML IV SCH ×3 (01:25→16:14)
[2021-02-06] MEDS: ONDANSETRON 4 MG/2 ML VIAL IVP PRN ×2 (05:45→12:01)
[2021-02-06] MEDS: METOCLOPRAMIDE 10 MG/2 ML VIAL IVP PRN ×2 (07:50→14:42)
--- NOTE | 2021-02-06 08:39 | PROVIDER PROGRESS NOTE ---
Subjective - Prog Note Date Prog Note Date: 02/06/21 Prog Note Time: 08:35 - Subjective Subjective: Patient is very uncomfortable despite the fact that contractions had petered out. She received 2 doses of miso yesterday and had vigrous contraction pattern. After the second dose, we held the third given borderline tachysystole. She was checked by RN and estimated to be 4/80/-1 station. Recommended starting pitocin. Pitocin was not started. Patient has been vomiting since about 6-6;30 am. Blood pressure at 8:02 was 167/106. It was repeated at 8:19 and was 167/98. Having pain in ribs but more on left. Denies CARROLL/vision change/RUQ pain. Given labetalol 20 mg and blood pressure 143/81 Objective - Vital Signs/Intake & Output Vital Signs: 167/109 79 37 Intake & Output: Intake & Output 02/03/21 02/04/21 02/05/21 02/06/21 23:59 23:59 23:59 23:59 Intake Total 1000 Balance 1000 - Objective General Appearance: positive: Moderate distress Respiratory: positive: No respiratory distress Cardiovascular: positive: Other (RR) Abdomen: positive: Other (Soft and NT/ND, gravid) Back: positive: Nml inspection Skin: positive: Color nml Comments/Other: SVE /-2 - Lab Results Fish Bones: 02/05/21 08:10 Other Labs: Lab Results x24hrs 02/05/21 02/05/21 Range/Units 08:10 08:10 WBC 5.8 (4.8-10.8) x10^3/uL RBC 4.07 L (4.20-5.40) 10^6/uL Hgb 11.4 L (12.0-16.0) g/dL Hct 34.3 L (37.0-47.0) % MCV 84.3 (81.0-99.0) fL MCH 28.0 (27.0-31.0) pg MCHC 33.2 (32.0-36.0) g/dL RDW 14.9 (12.0-15.0) % Plt Count 181 (130-450) 10^3/uL MPV 12.1 H (7.9-10.8) fL Neut # (Auto) 3.9 (1.5-6.6) 10^3/uL Lymph # (Auto) 1.5 (1.5-3.5) 10^3/uL [place] # (Auto) 0.4 (0.0-1.0) 10^3/uL Eos # (Auto) 0.1 (0.0-0.7) 10^3/uL Baso # (Auto) 0.0 (0.0-0.1) 10^3/uL Absolute Nucleated RBC 0.00 x10^3/uL Nucleated RBC % 0.0 /100WBC Blood Type A NEGATIVE Antibody Screen NEGATIVE Assessment/Plan - Problem List (1) Gestational hypertension Impression: IOL: Has received [id number] mcg BC x2 Has not had pitocin [place] is quiet/irritable Recommend start pitocin when blood pressures under control GHTN: Having severe range pressures Labetalol 20 mg IV x1 given and blood pressures are now in mild range Starting magnesium infusion 4g bolus and 2g infusion to follow PAIN: Wants to get into the tub. Not an option on magnesium Has been getting nitrous oxide Ok with epidural Signing out to Dr. Nicholas
[2021-02-06] MEDS ORDERED: MAGNESIUM SULFATE 4 GRAM 4 GM/50 ML BAG IV ONE (08:42)
[2021-02-06 08:58] LABS: BASOPHILS % (AUTO) 0.4 %; EOSINOPHILS % (AUTO) 0.1 %; HCT - HEMATOCRIT 37.5 % (37.0-47.0); HGB - HEMOGLOBIN 12.4 g/dL (12.0-16.0); LYMPHOCYTES # (AUTO) 1.1 10^3/uL (1.5-3.5); LYMPHOCYTES % (AUTO) 14.1 %; MEAN CORPUSCULAR HEMOGLOBIN 28.1 pg (27.0-31.0); MEAN CORPUSCULAR HGB CONC 33.1 g/dL (32.0-36.0); MEAN PLATELET VOLUME 12.1 fL (7.9-10.8); MONOCYTES # (AUTO) 0.3 10^3/uL (0.0-1.0); MONOCYTES % (AUTO) 3.5 %; NEUTROPHILS # (AUTO) 6.4 10^3/uL (1.5-6.6); NEUTROPHILS % (AUTO) 81.4 %; PLT - PLATELET COUNT 164 10^3/uL (130-450); RED BLOOD COUNT 4.41 10^6/uL (4.20-5.40); WHITE BLOOD COUNT 7.8 x10^3/uL (4.8-10.8)
[2021-02-06 09:12] LABS: ALBUMIN 3.3 g/dL (3.2-5.5); ALBUMIN/GLOBULIN RATIO 1.1 (1.0-2.2); ALKALINE PHOSPHATASE 139 IU/L (42-121); ALT ALANINE AMINOTRANSFERASE 12 IU/L (10-60); AST ASPARTATE AMINOTRANSFERASE 19 IU/L (10-42); BILIRUBIN,TOTAL 0.9 mg/dL (0.2-1.0); BUN - BLOOD UREA NITROGEN < 5 mg/dL (6-20); CALCIUM 9.2 mg/dL (8.5-10.3); CARBON DIOXIDE - CO2 20 mmol/L (21-32); CHLORIDE 108 mmol/L (101-111); CREATININE 0.5 mg/dL (0.4-1.0); GFR - MDRD 157 (>89); GLUCOSE 97 mg/dL (70-100); POTASSIUM 3.7 mmol/L (3.5-5.0); SODIUM 140 mmol/L (135-145); TOTAL PROTEIN 6.3 g/dL (6.7-8.2)
[2021-02-06] MEDS: MAGNESIUM SULFATE IN WATER 20 GM/500 ML IV.SOLN IV SCH ×2 (10:03→19:53)
[2021-02-06] MEDS ORDERED: ROPIVACAINE 0.2% 200 MG/100 ML BAG EP ONE (13:01)
[2021-02-06] MEDS ORDERED: ROPIVACAINE 0.2% 200 MG/100 ML BAG EP PRN (13:49)
[2021-02-06] MEDS ORDERED: NALBUPHINE 10 MG/ML AMP IVP PRN (13:49)
[2021-02-06] MEDS ORDERED: NALOXONE 0.4 MG/ML VIAL IVP PRN (13:49)
[2021-02-06] MEDS ORDERED: ONDANSETRON 4 MG/2 ML VIAL IVP PRN (13:49)
[2021-02-06] MEDS ORDERED: ePHEDrine 50 MG/ML VIAL IVP PRN (13:49)
[2021-02-06] MEDS ORDERED: diphenhydrAMINE INJ 50 MG/ML VIAL IVP PRN (13:49)
[2021-02-06] MEDS ORDERED: FAMOTIDINE 20 MG/2 ML VIAL IVP PRN (14:32)
--- NOTE | 2021-02-06 16:03 | PROVIDER PROGRESS NOTE ---
Labor Progress Note - Uterine Monitoring Uterine Monitoring Mode: positive: External toco Contraction Frequency (min/apart): Irregular Contraction Intensity: positive: Mild Uterine Resting Tone: positive: Soft - Monitoring Monitor Mode: positive: External ultrasound Heart Rate Baseline: 145 Heart Rate Variability: positive: Moderate (6-25 bmp) Accelerations: positive: Present, 15x15 Decelerations: positive: None Strip Review: positive: Category I - Vaginal Exam Dilation (in cm): 4 Effacement (%): 50 Station: -3 (IOL: Has received [id number] mcg BC x2 Has not had pitocin [place] is quiet/irritable Recommend start pitocin when blood pressures under control GHTN: Having severe range pressures Labetalol 20 mg IV x1 given and blood pressures are now in mild range) - Labor Progress Note Labor Progress Note/Additional Text: 1. 20-year-old at 37 weeks 1 day gestation 2. Induction of labor -Category 1 tracing -Patient is received 2 doses of misoprostol 50 mcg BC followed by oxytocin. Currently at 9 milliunits/min. Contractions are irregular and appear mild. Patient agreed to artificial rupture of membranes which was performed and showed a moderate amount of clear fluid. IUPC was placed at that time. -Continue with oxytocin augmentation -Epidural in place for pain control. 3. Preeclampsia with severe features -Patient's blood pressure treated this morning with labetalol 20 mg IV x1. She received her 4 g bolus and continued on her 2 g infusion. -Most recent blood pressure 115/65. No signs or symptoms of magnesium toxicity. 4.Nausea and vomiting -Patient doing better with combination of ondansetron and metoclopramide. -Pepcid for GERD
[2021-02-06] MEDS ORDERED: fentaNYL 100 MCG/2 ML VIAL ONE (16:41)
--- NOTE | 2021-02-06 16:43 | CONSULTATION NOTE ---
Consultation Report: called by OB RN as patient woke up from nap having 8/10 pain. Fentanyl 100 mcg and 5cc Lidocaine 1% bolus given. PCEA interval changed to 6cc every 10 minutes.
[2021-02-06] MEDS ORDERED: PROMETHAZINE 25 MG/1 ML VIAL IM STA (17:37)
[2021-02-06] MEDS ORDERED: BUPIVACAINE 0.5% PF 10 ML VIAL ONE (18:12)
--- NOTE | 2021-02-06 21:58 | DELIVERY NOTE ---
Delivery Note - Infant Delivery Method Infant Delivery Method: positive: Spontaneous vaginal delivery - Cervical Ripening Method Cervical Ripening Method: positive: Misoprostil, Oxytocin - Presentation Presentation: positive: MIKO - left occiput anterior - Nuchal Cord Nuchal Cord: positive: None - Anesthetic Anesthetic Type: - Amniotic Fluid Description Amniotic Fluid Description: positive: Clear - Episiotomy Type Episiotomy Type: positive: None - Laceration Laceration: positive: Labial (Right) - Suture Suture Type: positive: Chromic Suture Size: positive: 3-0 - Delivery Outcome Delivery Outcome: positive: Livebirth - : positive: Placed in direct skin contact with mother, Stimulated, Warmed, [place] used sex: positive: Male - Cord Cord: positive: 3 vessels - Placenta Placenta: positive: Intact, Spontaneous - Estimated Blood Loss Estimated Blood Loss (in cc): 450 - Post Delivery Events Post Delivery Events: positive: No post delivery events - Delivery Comments (Free Text/Narrative) Delivery Comments (Free Text/Narrative): History synopsis: Patient was a 20-year-old G1, P0 whose was complicated by gestational hypertension. She also had Rh- and received RhoGam initially at 25.3 weeks and repeat at 27.5 weeks. She had an elevated 1 hour GCT but normal 3-hour GCT. She was admitted at 37 weeks 0 days gestation for induction of labor initially for gestational hypertension. She was started on misoprostol 50 mcg buccal x2 doses. At that time she was 3 cm dilated. She had been using nitrous oxide for labor pains. She developed severe range blood pressures up to 167/106 the morning of her second day of induction and was treated with labetalol 20 mg IV. She was started on magnesium sulfate with a 4 g bolus then 2 g maintenance dose. After initial blood pressure treatment, her blood pressures remained nonsevere although intermittently in the 140s to 150s over 80s to 90s. She had no lab abnormalities signifying worsening preeclampsia. She received an epidural for pain control. Oxytocin was started and progressed to 4 cm. She had amniotomy with a moderate amount of clear fluid performed at that time and an IUPC was placed. She continued on oxytocin for augmentation and progressed to 5 cm at sixteen thirty-one, 7 cm eighteen forty-two, 8 cm at twenty twelve, 9 cm at twenty twenty-nine, and complete at twenty forty-four at which time the patient began pushing. Upon good maternal pushing effort, the delivery team was called. Delivery Summary: Patient was placed in the dorsal lithotomy position. Upon maternal pushing the head was delivered atraumatically in MIKO position followed by the anterior shoulder, posterior shoulder, then the remainder of the infant's body. A male was delivered with weights pending at this time. APGARS of eight at 1 minute and nine at 5 minutes. Date was placed on the mother's chest. After the cord was done pulsating, the umbilical cord was clamped times two and cut by the father the baby. The placenta delivered intact with three vessel cord. Placenta was not sent to pathology. Oxytocin was allowed to run freely. Uterine massage was performed until uterus was deemed firm. Upon inspection of the perineum, right labial laceration was noted and was repaired with a running suture of 3-0 chromic. Upon re-inspection the patient was hemostatic. Uterus again massaged and found to be firm. Needle and sponge counts were correct. Patient was stable and allowed to recover in L&D room. was stable and remained in room with mother.
[2021-02-06] MEDS ORDERED: SIMETHICONE CHEW 80 MG TABLET PO PRN (22:16)
[2021-02-06] MEDS ORDERED: OXYTOCIN/SODIUM CHLORIDE 500 ML IV SCH (22:40)
[2021-02-06] MEDS ORDERED: LACTATED RINGERS 1,000 ML IV SCH (23:00)
[2021-02-06] MEDS: miSOPROStoL 200 MCG TABLET BC PRN (23:15)
[2021-02-07] MEDS: ACETAMINOPHEN 500 MG TABLET PO SCH ×3 (01:42→20:19)
[2021-02-07] MEDS: IBUPROFEN 600 MG TABLET PO SCH ×5 (01:43→23:40)
[2021-02-07] MEDS: MAGNESIUM SULFATE IN WATER 20 GM/500 ML IV.SOLN IV SCH ×2 (05:29→15:05)
[2021-02-07] MEDS: miSOPROStoL 200 MCG TABLET BC PRN (05:47)
[2021-02-07 07:43] LABS: ALBUMIN 2.5 g/dL (3.2-5.5); ALKALINE PHOSPHATASE 112 IU/L (42-121); ALT ALANINE AMINOTRANSFERASE 11 IU/L (10-60); AST ASPARTATE AMINOTRANSFERASE 27 IU/L (10-42); BILIRUBIN,TOTAL 0.6 mg/dL (0.2-1.0); BUN - BLOOD UREA NITROGEN < 5 mg/dL (6-20); CARBON DIOXIDE - CO2 20 mmol/L (21-32); CHLORIDE 103 mmol/L (101-111); CREATININE 0.5 mg/dL (0.4-1.0); GFR - MDRD 157 (>89); GLUCOSE 109 mg/dL (70-100); POTASSIUM 3.7 mmol/L (3.5-5.0); SODIUM 132 mmol/L (135-145)
[2021-02-07 07:46] LABS: MAGNESIUM 5.2 mg/dL (1.7-2.8)
[2021-02-07 07:50] LABS: BASOPHILS % (AUTO) 0.2 %; HGB - HEMOGLOBIN 10.1 g/dL (12.0-16.0); LYMPHOCYTES # (AUTO) 1.4 10^3/uL (1.5-3.5); LYMPHOCYTES % (AUTO) 10.9 %; MEAN CORPUSCULAR HEMOGLOBIN 28.1 pg (27.0-31.0); MEAN CORPUSCULAR HGB CONC 33.7 g/dL (32.0-36.0); MEAN CORPUSCULAR VOLUME 83.6 fL (81.0-99.0); MEAN PLATELET VOLUME 12.1 fL (7.9-10.8); MONOCYTES # (AUTO) 0.9 10^3/uL (0.0-1.0); MONOCYTES % (AUTO) 7.3 %; NEUTROPHILS # (AUTO) 10.4 10^3/uL (1.5-6.6); NEUTROPHILS % (AUTO) 81.2 %; PLT - PLATELET COUNT 170 10^3/uL (130-450); RED BLOOD COUNT 3.59 10^6/uL (4.20-5.40); RED CELL DISTRIBUTION WIDTH 14.9 % (12.0-15.0); WHITE BLOOD COUNT 12.8 x10^3/uL (4.8-10.8)
--- NOTE | 2021-02-07 10:40 | PROVIDER PROGRESS NOTE ---
Progress Note Subjective HD#3 PPD# 1 Patient reports she is doing well. No headache, change in vision, RUQ pain. Lochia appropriate. Denies heavy bleeding. Ambulating to bedside commode until magnesium discontinued. Pelvic and abdominal pain well-controlled. Tolerating oral intake. Diet: Regular. Voiding without difficulty. Passing flatus. Denies BM. Patient is bonding with baby in room Breast feeding going well. Denies feeling lightheaded, dizzy or excessively fatigued. Control: Plan for postpartuym IUD Objective Temp Pulse Resp BP Pulse Ox 99.5 F 91 18 125/61 94 02/07/21 08:00 02/07/21 08:00 02/07/21 08:00 02/07/21 08:00 02/07/21 08:00 Laboratory Last Values WBC 12.8 x10^3/uL (4.8-10.8) H 02/07/21 07:20 RBC 3.59 10^6/uL (4.20-5.40) L 02/07/21 07:20 Hgb 10.1 g/dL (12.0-16.0) L 02/07/21 07:20 Hct 30.0 % (37.0-47.0) L 02/07/21 07:20 MCV 83.6 fL (81.0-99.0) 02/07/21 07:20 MCH 28.1 pg (27.0-31.0) 02/07/21 07:20 MCHC 33.7 g/dL (32.0-36.0) 02/07/21 07:20 RDW 14.9 % (12.0-15.0) 02/07/21 07:20 Plt Count 170 10^3/uL (130-450) 02/07/21 07:20 MPV 12.1 fL (7.9-10.8) H 02/07/21 07:20 Neut # (Auto) 10.4 10^3/uL (1.5-6.6) H 02/07/21 07:20 Lymph # (Auto) 1.4 10^3/uL (1.5-3.5) L 02/07/21 07:20 [place] # (Auto) 0.9 10^3/uL (0.0-1.0) 02/07/21 07:20 Eos # (Auto) 0.0 10^3/uL (0.0-0.7) 02/07/21 07:20 Baso # (Auto) 0.0 10^3/uL (0.0-0.1) 02/07/21 07:20 Absolute Nucleated RBC 0.00 x10^3/uL 02/07/21 07:20 Nucleated RBC % 0.0 /100WBC 02/07/21 07:20 Sodium 132 mmol/L (135-145) L 02/07/21 07:20 Potassium 3.7 mmol/L (3.5-5.0) 02/07/21 07:20 Chloride 103 mmol/L (101-111) 02/07/21 07:20 Carbon Dioxide 20 mmol/L (21-32) L 02/07/21 07:20 Anion Gap 9.0 (6-13) 02/07/21 07:20 BUN < 5 mg/dL (6-20) L 02/07/21 07:20 Creatinine 0.5 mg/dL (0.4-1.0) 02/07/21 07:20 Estimated GFR (MDRD) 157 (>89) 02/07/21 07:20 Glucose 109 mg/dL (70-100) H 02/07/21 07:20 Calcium 7.0 mg/dL (8.5-10.3) L 02/07/21 07:20 Magnesium 5.2 mg/dL (1.7-2.8) H* 02/07/21 07:20 Total Bilirubin 0.6 mg/dL (0.2-1.0) 02/07/21 07:20 AST 27 IU/L (10-42) 02/07/21 07:20 ALT 11 IU/L (10-60) 02/07/21 07:20 Alkaline Phosphatase 112 IU/L (42-121) 02/07/21 07:20 Total Protein 5.0 g/dL (6.7-8.2) L 02/07/21 07:20 Albumin 2.5 g/dL (3.2-5.5) L 02/07/21 07:20 Globulin 2.5 g/dL (2.1-4.2) 02/07/21 07:20 Albumin/Globulin Ratio 1.0 (1.0-2.2) 02/07/21 07:20 Blood Type A NEGATIVE 02/07/21 07:20 Weak D (Du) WEAK-D NEGATIVE 02/07/21 07:20 Antibody Screen NEGATIVE 02/05/21 08:10 Maternal Bleed POSITIVE (NEGATIVE) A 02/07/21 07:20 General: Alert, oriented, no apparent distress. Cardiovascular: Regular rate. Regular rhythm. No murmur. Lungs: Clear to auscultation. Good air movement. No crackles or wheezes Abdomen: Uterus firm. Below umbilicus. Normal active bowel sounds. No guarding or rebound. Extremities: Normal pedal pulses. No edema. No cords. 2+ DTR. No clonus Assessment and Plan day 1. -Routine care -Anticipate discharge tomorrow Preeclampsia severe features -We will continue magnesium sulfate for 24 hours . -Most recent magnesium level 5.2. Did have some decreased DTRs are this morning, but these are normalized now. Likely just from maternal positioning and exhaustion. -Most recent platelets 170, AST/ALT of 27/11. -No signs and symptoms of worsening preeclamp -BP this AM unremarkable. No BP treatments . Rh- -positive maternal bleed screen. -Administer RhoGam
[2021-02-07] MEDS: SODIUM CHLORIDE FLUSH 0.9% 10 ML SYRINGE IVP SCH ×3 (13:50→21:35)
[2021-02-07] MEDS: miSOPROStoL 100 MCG TABLET BC SCH ×2 (13:50→13:51)
[2021-02-07] MEDS: DOCUSATE SODIUM 100 MG CAPSULE PO PRN (20:19)
[2021-02-08] MEDS: ACETAMINOPHEN 500 MG TABLET PO SCH ×2 (04:33→11:48)
[2021-02-08] MEDS: IBUPROFEN 600 MG TABLET PO SCH ×2 (05:59→11:48)
[2021-02-08 09:09] VITALS: BP 122/65
--- NOTE | 2021-02-08 10:41 | DISCHARGE SUMMARY ---
"Discharge Summary Admit Date: 02/05/21 Discharge Date: 02/08/21 Discharging Provider: Ed Nicholas MD Code Status: Attempt Resuscitation Condition at Discharge: Good Discharge Disposition: 01 Home, Self Care - DIAGNOSES Admission Diagnoses: 37 weeks gestation Gestational hypertension Rh Negative Discharge Diagnoses with Status of Each Condition: 37 weeks gestation Preeclampsia with severe features Rh- Status post spontaneous vaginal delivery - HPI History of Present Illness: Patient reports she is doing well. Lochia appropriate. Denies heavy bleeding. Ambulating. Pelvic and abdominal pain well-controlled. Tolerating oral intake. Diet: Regular. Voiding without difficulty. Passing flatus. Had BM Patient is bonding with baby in room Breast feeding going well. Denies feeling lightheaded, dizzy or excessively fatigued. Control: IUD Physical exam General: Alert, oriented, no apparent distress. Cardiovascular: Regular rate. Regular rhythm. No murmur. Lungs: Clear to auscultation. Good air movement. No crackles or wheezes Abdomen: Uterus firm. Below umbilicus. Normal active bowel sounds. No guarding or rebound. Extremities: Normal pedal pulses. No edema. No cords. Temp Pulse Resp BP Pulse Ox 97.9 F 80 16 122/65 99 02/08/21 09:08 02/08/21 09:08 02/08/21 09:08 02/08/21 09:08 02/08/21 09:08 - CONSULTS | PROCEDURES Procedures: Spontaneous vaginal delivery, right labial laceration - HOSPITAL COURSE Hospital Course: Patient was a 36-year-old 20-year-old G1, P0 who was admitted at 37 weeks 0 days gestation for induction of labor initially for gestational hypertension. She was started on misoprostol 50 mcg buccal x2 doses. At that time she was 3 cm dilated. She had been using nitrous oxide for labor pains. She developed severe range blood pressures up to 167/106 the morning of her second day of induction and was treated with labetalol 20 mg IV. She was started on magnesium sulfate with a 4 g bolus then 2 g maintenance dose. After initial blood pressure treatment, her blood pressures remained nonsevere although intermit tently in the 140s to 150s over 80s to 90s. She had no lab abnormalities signifying worsening preeclampsia. She received an epidural for pain control. Oxytocin was started and progressed to 4 cm. She had amniotomy with a moderate amount of clear fluid performed at that time and an IUPC was placed. She continued on oxytocin for augmentation and progressed to 5 cm at sixteen thirty- one, 7 cm eighteen forty-two, 8 cm at twenty twelve, 9 cm at twenty twenty-nine, and complete at twenty forty-four at which time the patient began pushing. She had an uneventful spontaneous vaginal delivery with a small right labial laceration that was repaired. course was uneventful. She had no she remained on magnesium sulfate for 24 hours post delivery. She had no additional elevated blood pressures. She was discharged on day 2. - ALLERGIES Allergies/Adverse Reactions: Allergies Allergy/AdvReac Type Severity Reaction Status Date / Time No Known Drug Allergies Allergy Verified 11/04/20 17:39 - MEDICATIONS Home Medications: Ambulatory Orders Medication Instructions Recorded Confirmed Pnv No.95/Ferrous Fum/Folic AC 1 each PO DAILY 07/29/20 08/26/20 [ Tablet] Promethazine Supp [Phenergan Supp] 25 mg [place] Q8HR PRN #15 supp 08/26/20 Bacitracin Zinc Oint 1 applic TOP BID #1 gm 11/04/20 Ibuprofen [Motrin] 600 mg PO Q6H PRN #30 tab 11/04/20 - LABS Result Diagrams: 02/07/21 07:20 02/07/21 07:20 - FOLLOW UP Follow Up: [facility] for blood pressure check then 6 weeks for visit and IUD placement - TIME SPENT Time Spent in Discharge (Minutes): 20"
[2021-02-08] MEDS ORDERED: RHO(D) IMMUNE GLOBULIN 300 MCG SYRINGE IM ONE (10:49)
[2021-02-08] MEDS ORDERED: MEASLES,MUMPS & RUBELLA VACC 0.5 ML VIAL SUBQ ONE (11:01)
[2021-02-08] MEDS: DOCUSATE SODIUM 100 MG CAPSULE PO PRN (11:48)
== END 2021-02-08 13:35 | disposition home or self-care (01) | DRG 807 ==
LOC: WFO 07:19 → FBP 07:23 → WFO 13:54 → FBP 13:56 → OBSVTOIN 02-06 06:36
PROVIDERS: ADMIT Obstetrics & Gynecology; ATTEND Obstetrics & Gynecology
PROC: 10E0XZZ Delivery of Products of Conception, External Approach (ICD-10-PCS; principal; 2021-02-06)
PROC: 0HQ9XZZ Repair Perineum Skin, External Approach (ICD-10-PCS; 2021-02-06)
PROC: 10907ZC Drainage of Amniotic Fluid, Therapeutic from Products of Conception, Via Natural or Artificial Opening (ICD-10-PCS; 2021-02-06)
DX: O14.14 Severe pre-eclampsia complicating childbirth (principal); Z37.0 Single live birth; O99.62 Diseases of the digestive system complicating childbirth; O70.0 First degree perineal laceration during delivery; K21.9 Gastro-esophageal reflux disease without esophagitis; O26.893 Other specified pregnancy related conditions, third trimester; Z67.11 Type A blood, Rh negative; Z3A.37 37 weeks gestation of pregnancy
CPT/HCPCS: 36415; 80053; 81599; 83033; 83735; 85025; 86850; 86900; 86901; 96374; 96376; A9270; G0378; J2765; J7120; J3475

== ENCOUNTER 2021-02-05 07:40 | Outpatient (CLI) | payer MEDICAID ==
[2021-02-05 08:35] LABS: CREATININE,URINE 95.3 mg/dL; PROTEIN/CREATININE RATIO,URINE 0.1 (<=0.2)
== END 2021-02-05 07:41 | disposition home or self-care (01) ==
LOC: LAB 07:40
PROVIDERS: ATTEND Nurse Practitioner Obstetrics & Gynecology
DX: O13.3 Gestational [pregnancy-induced] hypertension without significant proteinuria, third trimester (principal)
CPT/HCPCS: 82570; 84156

== ENCOUNTER 2021-02-25 13:07 | Outpatient (CLI) | payer MEDICAID ==
[2021-02-25 13:21] LABS: HCT - HEMATOCRIT 33.8 % (37.0-47.0); HGB - HEMOGLOBIN 10.5 g/dL (12.0-16.0); MEAN CORPUSCULAR HEMOGLOBIN 26.1 pg (27.0-31.0); MEAN CORPUSCULAR HGB CONC 31.1 g/dL (32.0-36.0); MEAN CORPUSCULAR VOLUME 83.9 fL (81.0-99.0); MEAN PLATELET VOLUME 10.3 fL (7.9-10.8); RED BLOOD COUNT 4.03 10^6/uL (4.20-5.40); RED CELL DISTRIBUTION WIDTH 14.4 % (12.0-15.0)
== END 2021-02-25 13:08 | disposition home or self-care (01) ==
LOC: LAB 13:07
PROVIDERS: ATTEND Nurse Practitioner Obstetrics & Gynecology
DX: R42 Dizziness and giddiness (principal)
CPT/HCPCS: 36415; 85027

== ENCOUNTER 2021-06-13 15:50 | Emergency (ER) | payer MEDICAID ==
[2021-06-13] MEDS ORDERED: HYDROmorphone 1 MG/ML CARPUJECT IM STA (16:22)
[2021-06-13] MEDS ORDERED: CHERRY SYRUP 10 ML UDC PO ONE (16:22)
[2021-06-13] MEDS ORDERED: DEXAMETHASONE 10 MG/ML VIAL PO STA (16:22)
[2021-06-13 16:25] LABS: BILIRUBIN,URINE NEGATIVE (NEGATIVE); GLUCOSE, URINE (UA) NEGATIVE (NEGATIVE); KETONES,URINE (UA) NEGATIVE (NEGATIVE); LEUKOCYTE ESTERASE, URINE SMALL (NEGATIVE); NITRITE,URINE NEGATIVE (NEGATIVE); OCCULT BLOOD,URINE LARGE (NEGATIVE); PH,URINE 5.5 PH (5.0-7.5); PROTEIN,URINE 30 mg/dL (NEGATIVE); UROBILINOGEN,URINE 0.2 (NORMAL) E.U./dL (NORMAL)
[2021-06-13 16:26] LABS: CLARITY,URINE CLEAR (CLEAR); HCG UR QUAL NEGATIVE
--- NOTE | 2021-06-13 16:27 | ED Physician Documentation ---
History of Present Illness - Stated complaint Stated Complaint: BACK PX - Chief complaint Chief Complaint: Back Pain - Additonal information Additional information: 21-year-old female presents emergency department for evaluation of acute left- sided low back pain. Reports that yesterday she was taking a car seat out of the car and her arms slipped and she felt a pop in her low back. Since then she has had pain radiating up the left side to her thoracic area. Sometimes has difficulty taking a deep breath. No cough or fevers. No saddle anesthesia. No loss of bowel or bladder function. No history of diabetes or injection drug use. No hormone use. No unilateral leg swelling. No history of DVT or cancer. 9 patient does have a history of occasional back pain and back spasms but this feels different. She has taken 600 mg of ibuprofen which does relieve the pain somewhat but it simply comes back. 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 : Benign prostate hypertrophy HEENT: None Psych: Anxiety Musculoskeletal: None Derm: None - Past Surgical History Past Surgical History: No - Present Medications Home Medications: Ambulatory Orders Medication Instructions Recorded Confirmed Pnv No.95/Ferrous Fum/Folic AC 1 each PO DAILY 07/29/20 08/26/20 [ Tablet] Promethazine Supp [Phenergan Supp] 25 mg [place] Q8HR PRN #15 supp 08/26/20 Bacitracin Zinc Oint 1 applic TOP BID #1 gm 11/04/20 Ibuprofen [Motrin] 600 mg PO Q6H PRN #30 tab 11/04/20 Acetaminophen [Tylenol] 650 mg PO Q6H PRN #90 tablet 02/08/21 Docusate Sodium 100Mg Capsule 100 - 200 mg PO BID PRN #60 cap 02/08/21 [Colace 100Mg Capsule] Ibuprofen [Motrin] 600 mg PO Q6H PRN #60 tab 02/08/21 HYDROcod/ACETAM 5/325 [[place] 5/325] 1 tablet PO BID PRN #10 tablet 06/13/21 - Allergies Allergies/Adverse Reactions: Allergies Allergy/AdvReac Type Severity Reaction Status Date / Time No Known Drug Allergies Allergy Verified 06/13/21 15:59 - Social History Does the pt smoke?: No Smoking Status: Never smoker Does the pt drink ETOH?: No Does the pt have substance abuse?: No - Immunizations Immunizations are current?: Yes - POLST Patient has POLST: No PD ED PE EXPANDED - General General: Alert, No acute distress, Well developed/nourished - Cardiac Cardiac: Regular Rate, Radial strong equal, Pedal strong equal, Cap refill < 2 sec. No: Murmur Present - Respiratory Respiratory: Clear to ausultation esvin. No: Distress, Labored - Abdomen Abdomen: Normal Bowel sounds. No: Tender to palpation - Back Back: Normal ROM, Soft tissue tenderness. No: Vertebral tenderness (no midlien spinous tenderness of thoracic or lumbra spine. Left lower lumbar paraspinous tenderness with palpable pain radiating up toward the thoracic region. no swelling, ecchymosis. Full forward ROM. normal gait. motor strength 5/5 BLE), Limited ROM, CVA TTP right, CVA TTP left - Derm Derm: Normal color, Warm and dry - Neuro Neuro: Alert and Oriented X 3, CNII-XII intact, Normal gait. No: Confused - GCS Eye Opening: Spontaneous Motor: Obeys Commands Verbal: Oriented Total: 15 Results - Vitals Vitals: Vital Signs - 24 hr 06/13/21 15:54 Temperature 36.6 C Heart Rate 81 Respiratory 16 Rate Blood Pressure 152/90 H O2 Saturation 98 Oxygen O2 Source Room air - Labs Labs: Laboratory Tests 06/13/21 16:16 Urine Color YELLOW Urine Clarity CLEAR Urine pH 5.5 Ur Specific [place] >=1.030 H Urine Protein 30 H Urine Glucose (UA) NEGATIVE Urine Ketones NEGATIVE Urine Occult Blood LARGE H Urine Nitrite NEGATIVE Urine Bilirubin NEGATIVE Urine Urobilinogen 0.2 (NORMAL) Ur Leukocyte Esterase SMALL H Urine RBC 6-10 H Urine WBC 6-10 H Ur Squamous Epith Cells MANY Squamous H Urine Bacteria Moderate H Ur Microscopic Review INDICATED Urine Culture Comments NOT INDICATED Urine HCG, Qual NEGATIVE - Rads (name of study) CXR Radiology: Final report received (normal portable chest) PD MEDICAL DECISION MAKING - ED course Complexity details: reviewed results, re-evaluated patient, considered differential, d/w patient ED course: 21-year-old female presents emergency department for evaluation of acute mechanical low back pain that began 2 days ago when she was pulling her son's car seat out of the car. Arm slipped and she felt a pop in her low back. Since then pain has radiated up towards her left thoracic area. Chest x-ray is without acute focal findings. PERC negative. Patient is starting her menstrual cycle and her urine today is consistent with that. She denies any dysuria urgency or frequency. no flank pain; low suspicion for renal colic. Patient was given a dose of Dilaudid here in the emergency department with marked improvement in symptoms. Should be noted she does not have any red flags. Patient will continue ibuprofen at home. Limited amount of hydrocodone was sent to the pharmacy as well as muscle relaxer. Emergent return precautions otherwise discussed. I am prescribing a short course of short-acting opioid pain medication for this patient. 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 I have discussed that the opioids are for short term therapy only, and will not be refilled from the ED. Departure - Departure Disposition: Home, Self Care Clinical Impression: Left low back pain Qualifiers: Chronicity: acute Sciatica presence: without sciatica Qualified Code(s): M54.50 - Low back pain, unspecified Condition: Stable Record reviewed to determine appropriate education?: Yes Instructions: ED Spasm Back No Trauma Prescriptions: HYDROcod/ACETAM 5/325 [[place] 5/325] 1 tablet PO BID PRN #10 tablet PRN Reason: Pain Comments: Omayra cyr are seen in the emergency department for acute left low back pain that began when you pulled your son's car seat out of the car. I suspect that he simply strained and pulled the muscles. I would like you to continue to take the ibuprofen 600 mg with food 2-3 times a day. Gentle stretching can help relieve spasm. For severe pain I have sent a limited prescription for [place] to [facility] in [place]. Most mechanical back pain injuries like this will resolve after 10 to 14 days. If not markedly improving I do recommend close follow-up with your primary care provider. You may benefit from referral to physical therapy. Return to the ER if you develop fevers, have uncontrolled vomiting, severe or worsening symptoms.
--- NOTE | 2021-06-13 16:49 | XRAY Report ---
PROCEDURE: Chest 1 View X-Ray INDICATIONS: chest pain TECHNIQUE: One view of the chest was acquired. COMPARISON: 05/23/2018, 02/28/2015 FINDINGS: Surgical changes and devices: None. Lungs and pleura: No pleural effusions or pneumothorax. Lungs are clear. Mediastinum: Mediastinal contours appear normal. Heart size is normal. Bones and chest wall: No suspicious bony lesions. Overlying soft tissues appear unremarkable. IMPRESSION: Normal portable chest. Reviewed by: Bossman Gasca MD on 06/13/2021 3:48 PM [place] Approved by: Bossman Gasca MD on 06/13/2021 3:48 PM [facility] Station ID: [id number]
[2021-06-13 17:03] LABS: SQUAMOUS EPITHELIAL CELL,UR MANY Squamous (<= Few)
[2021-06-13 17:04] LABS: BACTERIA,URINE Moderate /HPF (None Seen)
[2021-06-13] MEDS ORDERED: ONDANSETRON ODT 4 MG TABLET TL STA (17:33)
[2021-06-13 17:39] VITALS: BP 133/76
== END 2021-06-13 17:39 | disposition home or self-care (01) ==
LOC: ED 15:50
DX: M54.50 Low back pain, unspecified (principal)
CPT/HCPCS: 71045; 81001; 81025; 96372; 99282; 99284; A9270; J1170; Q0162; 81003; 87086